=== PATIENT | female | born 1975 | race Caucasian/White ===

== ENCOUNTER 2021-07-26 14:17 | Emergency (ER) | payer OTHER ==
[~2021-07-26] VITALS: Ht 172.7 cm; Wt 70.4 kg
[2021-07-26] MEDS ORDERED: IV NORMAL SALINE 1000ML BAG 1,000 ML IV SCH (15:00)
[2021-07-26] MEDS ORDERED: ASPIRIN CHEWABLE 81 MG TABLET. PO ONE (15:00)
[2021-07-26 15:11] LABS: BASO % 1 % (0-3); EOS # 0.1 x10^3/uL (0.0-0.7); EOS % 1 % (0-3); HEMATOCRIT 39.2 % (36.0-47.0); HEMOGLOBIN 13.8 g/dL (12.0-15.5); LYMPH # 1.7 x10^3/uL (1.0-4.8); LYMPH % 19 % (24-48); MEAN CORPUSCULAR HEMOGLOBIN 30 pg (25-35); MEAN CORPUSCULAR HGB CONC 35 g/dL (31-37); MEAN CORPUSCULAR VOLUME 87 fL (79-100); MONO # 0.6 x10^3/uL (0.0-1.1); MONO % 7 % (0-9); NEUT # 6.4 x10^3/uL (1.8-7.7); NEUT % 73 % (31-73); PLATELET COUNT 224 x10^3/uL (140-400); RED BLOOD COUNT 4.52 x10^6/uL (3.50-5.40); RED CELL DISTRIBUTION WIDTH 13.6 % (11.5-14.5); WHITE BLOOD COUNT 8.8 x10^3/uL (4.0-11.0)
[2021-07-26 15:26] LABS: ALBUMIN 4.2 g/dL (3.4-5.0); ALBUMIN/GLOBULIN RATIO 0.9 (1.0-1.7); CALCIUM 9.5 mg/dL (8.5-10.1); CREATININE 1.2 mg/dL (0.6-1.0); GFR 48.8; MAGNESIUM 1.8 mg/dL (1.8-2.4); TOTAL BILIRUBIN 0.5 mg/dL (0.2-1.0); TOTAL PROTEIN 8.9 g/dL (6.4-8.2)
[2021-07-26] MEDS ORDERED: ONDANSETRON PF 4 MG/2 ML VIAL. IVP ONE (15:30)
[2021-07-26] MEDS ORDERED: FAMOTIDINE 20 MG/2 ML VIAL IVP ONE (15:30)
[2021-07-26 15:32] LABS: POTASSIUM 2.7 mmol/L (3.5-5.1)
--- NOTE | 2021-07-26 15:41 | RAD ---
AP chest. HISTORY: Chest pain AP view was taken of the chest. Lungs are clear. Heart is normal in size. There is no effusion. IMPRESSION: 1. No acute chest disease. Electronically signed by: Yogi Ramirez MD (07/26/2021 3:38 PM) [facility]
[2021-07-26] MEDS ORDERED: fentaNYL PF VIAL 100 MCG/2 ML VIAL IVP ONE (15:45)
--- NOTE | 2021-07-26 15:57 | PHYS DOC ---
Past Medical History Past Surgical History: Cholecystectomy, Additional Past Surgical Histo: ACL (YASMIN SIDDIQI APRN) General Adult EDM: Chief Complaint: CHEST PAIN HPI: HPI: Patient is a 46 year old female who presents with 2 weeks of right upper quadrant pain now going to the left chest that is a burning sensation, nausea and vomiting, tingling in the left hand. She states she is unable to keep any food or fluids down. She is a history of cholecystectomy. Rates her discomfort an 8 out of 10 at this time. (YASMIN SIDDIQI APRN) Review of Systems: Review of Systems: Constitutional: Denies fever or chills. [] Eyes: Denies change in visual acuity. [] HENT: Denies nasal congestion or sore throat. [] Respiratory: Denies cough or shortness of breath. [] Cardiovascular: +chest pain or denies edema. [] GI: + abdominal pain,+ nausea, +vomiting, bloody stools or diarrhea. [] : Denies dysuria. [] Musculoskeletal: Denies back pain or joint pain. [] Integument: Denies rash. [] Neurologic: Denies headache, focal weakness or sensory changes. [] Endocrine: Denies polyuria or polydipsia. [] Lymphatic: Denies swollen glands. [] Psychiatric: Denies depression or anxiety. [] (YASMIN SIDDIQI APRN) Heart Score: C/O Chest Pain: Yes HEART Score for Chest Pain: HEART Score for Chest Pain Response (Comments) Value History Slighlty/Non-Suspicious 0 ECG Normal 0 Age < 45 0 Risk Factors 1 or 2 Risk Factors 1 Troponin < Normal Limit 0 Total 1 Risk Factors: Risk Factors: DM, Current or recent (<one month) smoker, HTN, HLP, family history of CAD, obesity. Risk Scores: Score 0 - 3: 2.5% MACE over next 6 weeks - Discharge Home Score 4 - 6: 20.3% MACE over next 6 weeks - Admit for Clinical Observation Score 7 - 10: 72.7% MACE over next 6 weeks - Early Invasive Strategies (YASMIN SIDDIQI APRN) Current Medications: Current Medications Medications (Trade) Dose Ordered Sig/Chelsea Start Time Stop Time Status Last Admin Dose Admin Aspirin (Aspirin Chewable) 324 mg 1X ONCE 07/26/21 15:00 07/26/21 15:01 DC 07/26/21 15:41 324 MG Famotidine (Pepcid Vial) 20 mg 1X ONCE 07/26/21 15:30 07/26/21 15:34 DC 07/26/21 15:42 20 MG Fentanyl Citrate (Fentanyl 2ml Vial) 50 mcg 1X ONCE 07/26/21 15:45 07/26/21 15:46 DC 07/26/21 15:42 50 MCG Ondansetron HCl (Zofran) 4 mg 1X ONCE 07/26/21 15:30 07/26/21 15:34 DC 07/26/21 15:42 4 MG Sodium Chloride 1,000 ml @ 1,000 mls/hr Q1H 07/26/21 15:00 07/26/21 15:59 07/26/21 15:41 1,000 MLS/HR (YASMIN SIDDIQI APRN) Allergies: Allergies: Allergies Coded Allergies Type Severity Reaction Last Updated Verified Sulfa (Sulfonamide Antibiotics) Allergy Severe HIVES 07/26/21 Yes diphenhydramine Allergy Severe RASH 07/26/21 Yes (YASMIN SIDDIQI APRN) Physical Exam: PE: Constitutional: Well developed, well nourished, no acute distress, non-toxic appearance. [] HENT: Normocephalic, atraumatic, bilateral external ears normal, oropharynx moist, no oral exudates, nose normal. [] Eyes: PERRLA, EOMI, conjunctiva normal, no discharge. [] Neck: Normal range of motion, no tenderness, supple, no stridor. [] Cardiovascular:Heart rate regular rhythm, no murmur [] Lungs & Thorax: Bilateral breath sounds clear to auscultation [] Abdomen: Bowel sounds normal, soft, right upper quadrant tenderness, no masses, no pulsatile masses. [] Skin: Warm, dry, no erythema, no rash. [] Back: No tenderness, no CVA tenderness. [] Extremities: No tenderness, no cyanosis, no clubbing, ROM intact, no edema. [] Neurologic: Alert and oriented X 3, normal motor function, normal sensory function, no focal deficits noted. [] Psychologic: Affect normal, judgement normal, mood normal. 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 M SLASHER OPERATOR) Current Patient Data: Labs: Laboratory Tests Test 07/26/21 15:05 White Blood Count 8.8 x10^3/uL (4.0-11.0) Red Blood Count 4.52 x10^6/uL (3.50-5.40) Hemoglobin 13.8 g/dL (12.0-15.5) Hematocrit 39.2 % (36.0-47.0) Mean Corpuscular Volume 87 fL (79-100) Mean Corpuscular Hemoglobin 30 pg (25-35) Mean Corpuscular Hemoglobin Concent 35 g/dL (31-37) Red Cell Distribution Width 13.6 % (11.5-14.5) Platelet Count 224 x10^3/uL (140-400) Neutrophils (%) (Auto) 73 % (31-73) Lymphocytes (%) (Auto) 19 % (24-48) L Monocytes (%) (Auto) 7 % (0-9) Eosinophils (%) (Auto) 1 % (0-3) Basophils (%) (Auto) 1 % (0-3) Neutrophils # (Auto) 6.4 x10^3/uL (1.8-7.7) Lymphocytes # (Auto) 1.7 x10^3/uL (1.0-4.8) Monocytes # (Auto) 0.6 x10^3/uL (0.0-1.1) Eosinophils # (Auto) 0.1 x10^3/uL (0.0-0.7) Basophils # (Auto) 0.0 x10^3/uL (0.0-0.2) Sodium Level 138 mmol/L (136-145) Potassium Level 2.7 mmol/L (3.5-5.1) *L Chloride Level 97 mmol/L (98-107) L Carbon Dioxide Level 29 mmol/L (21-32) Anion Gap 12 (6-14) Blood Urea Nitrogen 19 mg/dL (7-20) Creatinine 1.2 mg/dL (0.6-1.0) H Estimated GFR (Cockcroft-Gault) 48.8 BUN/Creatinine Ratio 16 (6-20) Glucose Level 214 mg/dL (70-99) H Calcium Level 9.5 mg/dL (8.5-10.1) Magnesium Level 1.8 mg/dL (1.8-2.4) Total Bilirubin 0.5 mg/dL (0.2-1.0) Aspartate Amino Transferase (AST) 10 U/L (15-37) L Alanine Aminotransferase (ALT) 15 U/L (14-59) Alkaline Phosphatase 55 U/L (46-116) Troponin I Quantitative < 0.017 ng/mL (0.000-0.055) YZ-Yji-K-Type Natriuretic Peptide 350 pg/mL (0-124) H Total Protein 8.9 g/dL (6.4-8.2) H Albumin 4.2 g/dL (3.4-5.0) Albumin/Globulin Ratio 0.9 (1.0-1.7) L Lipase 342 U/L (73-393) Laboratory Tests 07/26/21 15:05 Laboratory Tests 07/26/21 15:05 Vital Signs: Vital Signs Date Time Temp Pulse Resp B/P (MAP) Pulse Ox O2 Delivery O2 Flow Rate FiO2 07/26/21 15:42 16 Room Air 07/26/21 14:37 99.0 95 185/102 (129) 100 99.0 (YASMIN SIDDIQI APRN) EKG: EK and read by Dr. Lazo as sinus rhythm and prolonged QT. No STEMI. (YASMIN SIDDIQI APRN) Radiology/Procedures: Radiology/Procedures: [] Impression: [facility] [address] [place] [address] IMAGING REPORT Signed PATIENT: TARA CARVALHO ACCOUNT: [id number] : 1975 LOCATION: ER AGE: 46 SEX: F EXAM STATUS: PRE ER ORD. PHYSICIAN: YASMIN SIDDIQI APRN REASON: chest pain PROCEDURE: PORTABLE CHEST 1V AP chest. HISTORY: Chest pain AP view was taken of the chest. Lungs are clear. Heart is normal in size. There is no effusion. IMPRESSION: 1. No acute chest disease. Electronically signed by: Yogi Ramirez MD (07/26/2021 3:38 PM) [facility] DICTATED and SIGNED BY: YOGI RAMIREZ MD DATE: 07/26/21 [id number] [facility] [address] [place] [address] IMAGING REPORT Signed PATIENT: TARA CARVALHO ACCOUNT: [id number] : 1975 LOCATION: ER AGE: 46 SEX: F EXAM STATUS: PRE ER ORD. PHYSICIAN: YASMIN SIDDIQI APRN REASON: ruq pain PROCEDURE: CT ABD PELV W/ IV CONTRST ONLY CT abdomen pelvis with contrast. HISTORY: Right upper quadrant pain, CT abdomen pelvis was done using 6 60 mL Omnipaque 300 contrast. Lung bases are clear. There is no effusion. Liver is normal in appearance. There is no calcified gallstone. Spleen and adrenal glands are unremarkable. Pancreas is normal in appearance. There is no mass or hydronephrosis in the kidneys. There is no renal or ureteral calculus evident. There is no free air or ascites. There is no bowel obstruction. Appendix is normal. Uterus and ovaries are unremarkable. Patient had a previous cholecystectomy. Bile ducts do not appear dilated. IMPRESSION: 1. Normal appendix. 2. No renal or ureteral calculus noted. 3. No bowel obstruction. 4. No abdominal or pelvic mass or other acute finding. PQRS Compliance Statement: One or more of the following individualized dose reduction techniques were utilized for this examination: 1. Automated exposure control 2. Adjustment of the mA and/or kV according to patient size 3. Use of iterative reconstruction technique Electronically signed by: Yogi Ramirez MD (07/26/2021 5:26 PM) [facility] DICTATED and SIGNED BY: YOGI RAMIREZ MD DATE: 07/26/21 [id number] (YASMIN SIDDIQI APRN) Course & Med Decision Making: Course & Med Decision Making Pertinent Labs and Imaging studies reviewed. (See chart for details) See HPI. Alert and oriented x4. Ambulatory steady gait. Skin pink warm dry. Urinalysis shows dehydration. Patient's creatinine is 1.2. Potassium is low at 2.7. I gave her potassium p.o. and IV. She became very nauseated and almost vomited potassium back up. Patient is given another dose of Compazine. Her blood pressure is also very high in the 240. She states she does have a history of high blood pressure but is not taking medication for. I ordered hydralazine. She has gotten 2 bags of normal saline IV. 182: Patient has decided that she cannot stay due to having a 16-year-old autistic child at home. He states that her now cannot call in and she must go home because nobody else can take care for the child. She states she understands that she is needing fluids and observation. She states she understands the risk of going home such as dying and disability. She states she understands potassium is too low and this can cause arrhythmias. Patient states that she has time to stay to get the rest of her fluids and to finish her potassium. Patient is signing out AGAINST MEDICAL ADVICE. [] (YASMIN SIDDIQI APRN) Dragon Disclaimer: Dragon Disclaimer: This electronic medical record was generated, in whole or in part, using a voice recognition dictation system. (YASMIN SIDDIQI APRN) Departure Departure Impression: Primary Impression: Hypokalemia Additional Impressions: Dehydration Abdominal pain Qualified Codes: R10.13 - Epigastric pain Nausea and vomiting Qualified Codes: R11.2 - Nausea with vomiting, unspecified Left against medical advice Disposition: LEFT AGAINST MEDICAL ADVICE Condition: STABLE Attending Signature Attending Signature I have reviewed the PA/HUMAN CAPITAL MANAGER's note and plan of care. I was available for consultation as needed during the patient's visit in the emergency department. I agree with the clinical impression, plan, and disposition. (JESSICA LAZO DO) YASMIN SIDDIQI APRN Jul 26, 2021 15:57 JESSICA LAZO DO Jul 27, 2021 06:53
[2021-07-26] MEDS ORDERED: POTASSIUM CHLORIDE 20 MEQ TABLET.ER. PO ONE (16:00)
[2021-07-26] MEDS: POTASSIUM CHLORIDE 20MEQ 100 ML IV SCH ×2 (16:08→17:29)
[2021-07-26 16:34] LABS: BILIRUBIN,URINE LARGE (NEG); CLARITY,URINE CLEAR; NITRITE,URINE NEGATIVE (NEG); PROTEIN,URINE 100 mg/dL (NEG-TRACE)
[2021-07-26 16:40] LABS: AMPHETAMINE/METHAMPHETAMINE NEG (NEG); BARBITURATES NEG (NEG); BENZODIAZEPINES NEG (NEG); CANNABINOIDS NEG (NEG); COCAINE NEG (NEG); METHADONE NEG (NEG); OPIATES POS (NEG); PHENCYCLIDINE NEG (NEG)
[2021-07-26 16:42] LABS: COLOR,URINE DK YELLOW
[2021-07-26 16:44] LABS: BACTERIA,URINE FEW /HPF (0-FEW); RBC,URINE RARE /HPF (0-2); WBC,URINE OCC /HPF (0-4)
[2021-07-26] MEDS ORDERED: CONTRAST GIVEN. MC PRN (16:45)
[2021-07-26] MEDS ORDERED: IOHEXOL 300 MG/ML 100ML VIAL. IV ONE (16:45)
--- NOTE | 2021-07-26 17:28 | EKG ---
[facility] [address] [place] [address] Test Date: 2021-07-26 Test Time: 14:36:01 Pat Name: TARA CARVALHO Department: Room: Gender: F Admissions Rn: : 1975 Requested By: YASMIN SIDDIQI Order Number: [id number] Reading MD: Yuriy Orellana MD Measurements Intervals [place] Rate: 94 P: 52 [place]: 122 QRS: 34 QRSD: 98 T: 47 QT: 384 QTc: 486 Interpretive Statements SINUS RHYTHM PROLONGED QT Electronically Signed On 07-29-2021 10:40:26 CDT by Yuriy Orellana MD
--- NOTE | 2021-07-26 17:28 | RAD ---
CT abdomen pelvis with contrast. HISTORY: Right upper quadrant pain, CT abdomen pelvis was done using 6 60 mL Omnipaque 300 contrast. Lung bases are clear. There is no ef fusion. Liver is normal in appearance. There is no calcified gallstone. Spleen and adrenal glands are unremarkable. Pancreas is normal in appearance. There is no mass or hydronephrosis in the kidneys. T here is no renal or ureteral calculus evident. There is no free air or ascites. There is no bowel obs truction. Appendix is normal. Uterus and ovaries are unremarkable. Patient had a previous cholecystec roseann. Bile ducts do not appear dilated. IMPRESSION: 1. Normal appendix. 2. No renal or ureteral calculus noted. 3. No bowel obstruction. 4. No abdominal or pelvic mass or other acute finding. PQRS Compliance Statement: One or more of the following individualized dose reduction techniques were utilized for this examinat ion: 1. Automated exposure control 2. Adjustment of the mA and/or kV according to patient size 3. Use of iterative reconstruction technique Electronically signed by: Yogi Ramirez MD (07/26/2021 5:26 PM) [facility]
[2021-07-26] MEDS ORDERED: IV NORMAL SALINE 1000ML BAG 1,000 ML IV ONE (18:00)
[2021-07-26] MEDS ORDERED: PROCHLORPERAZINE 10 MG/2 ML VIAL. IV ONE (18:00)
[2021-07-26] MEDS ORDERED: hydrALAZINE 20 MG/ML VIAL. IVP ONE (18:00)
--- NOTE | 2021-07-26 18:25 | PDOC1 ---
History and Physical Date of Admission Date of Admission DATE: 07/26/21 TIME: 18:25 Current Problem List Problem List Problems Medical Problems: (1) Abdominal pain Status: Acute (2) Dehydration Status: Acute (3) Hypokalemia Status: Acute (4) Nausea and vomiting Status: Acute Current Medications Current Medications Current Medications Aspirin (Aspirin Chewable) 324 mg 1X ONCE PO Last administered on 07/26/21at 15:41; Start 07/26/21 at 15:00; Stop 07/26/21 at 15:01; Status DC Sodium Chloride 1,000 ml @ 1,000 mls/hr Q1H IV Last administered on 07/26/21at 15:41; Start 07/26/21 at 15:00; Stop 07/26/21 at 15:59; Status DC Ondansetron HCl (Zofran) 4 mg 1X ONCE IVP Last administered on 07/26/21at 15:42; Start 07/26/21 at 15:30; Stop 07/26/21 at 15:34; Status DC Famotidine (Pepcid Vial) 20 mg 1X ONCE IVP Last administered on 07/26/21at 15:42; Start 07/26/21 at 15:30; Stop 07/26/21 at 15:34; Status DC Fentanyl Citrate (Fentanyl 2ml Vial) 50 mcg 1X ONCE IVP Last administered on 07/26/21at 15:42; Start 07/26/21 at 15:45; Stop 07/26/21 at 15:46; Status DC Potassium Chloride/Water 100 ml @ 50 mls/hr Q2H IV Last administered on 07/26/21at 17:29; Start 07/26/21 at 16:00; Stop 07/26/21 at 19:59 Potassium Chloride (Klor-Con) 20 meq 1X ONCE PO Last administered on 07/26/21at 16:14; Start 07/26/21 at 16:00; Stop 07/26/21 at 16:01; Status DC Iohexol (Omnipaque 300 Mg/ml) 75 ml 1X ONCE IV ; Start 07/26/21 at 16:45; Stop 07/26/21 at 16:46; Status DC Info (CONTRAST GIVEN -- Rx MONITORING) 1 each PRN DAILY PRN MC SEE COMMENTS; Start 07/26/21 at 16:45; Stop 07/28/21 at 16:44 Prochlorperazine Edisylate (Compazine) 10 mg 1X ONCE IV Last administered on 07/26/21at 18:07; Start 07/26/21 at 18:00; Stop 07/26/21 at 18:01; Status DC Hydralazine HCl (Apresoline Inj) 10 mg 1X ONCE IVP Last administered on 07/26/21at 18:07; Start 07/26/21 at 18:00; Stop 07/26/21 at 18:01; Status DC Sodium Chloride 1,000 ml @ 1,000 mls/hr 1X ONCE IV Last administered on 07/26/21at 18:00; Start 07/26/21 at 18:00; Stop 07/26/21 at 18:59 Magnesium Sulfate/ Dextrose 100 ml @ 100 mls/hr 1X ONCE IV ; Start 07/26/21 at 18:30; Stop 07/26/21 at 19:29; Status UNV Nitroglycerin (Nitrostat) 0.4 mg PRN Q5MIN PRN SL CHEST PAIN; Start 07/26/21 at 18:30; Status UNV Acetaminophen (Tylenol) 650 mg PRN Q6HRS PRN PO MILD PAIN / TEMP > 100.3'F; Start 07/26/21 at 18:30; Status UNV Ondansetron HCl (Zofran) 4 mg PRN Q4HRS PRN IVP NAUSEA/VOMITING; Start 07/26/21 at 18:30; Status UNV Hydralazine HCl (Apresoline Inj) 10 mg PRN Q4HRS PRN IVP ELEVATED BP, SEE COMMENTS; Start 07/26/21 at 18:30; Status UNV Fentanyl Citrate (Fentanyl 2ml Vial) 25 mcg PRN Q3HRS PRN IVP SEVERE PAIN 7-10; Start 07/26/21 at 18:30; Status UNV Allergies Allergies: Coded Allergies: Sulfa (Sulfonamide Antibiotics) (Verified Allergy, Severe, HIVES, 07/26/21) diphenhydramine (Verified Allergy, Severe, RASH, 07/26/21) Vitals Vitals Vital Signs Date Time Temp Pulse Resp B/P (MAP) Pulse Ox O2 Delivery O2 Flow Rate FiO2 07/26/21 18:07 94 234/119 07/26/21 15:42 16 Room Air 10/15/21 14:37 99.0 100 99.0 Labs Labs Laboratory Tests Test 07/26/21 15:05 07/26/21 16:20 07/26/21 16:25 White Blood Count 8.8 x10^3/uL (4.0-11.0) Red Blood Count 4.52 x10^6/uL (3.50-5.40) Hemoglobin 13.8 g/dL (12.0-15.5) Hematocrit 39.2 % (36.0-47.0) Mean Corpuscular Volume 87 fL (79-100) Mean Corpuscular Hemoglobin 30 pg (25-35) Mean Corpuscular Hemoglobin Concent 35 g/dL (31-37) Red Cell Distribution Width 13.6 % (11.5-14.5) Platelet Count 224 x10^3/uL (140-400) Neutrophils (%) (Auto) 73 % (31-73) Lymphocytes (%) (Auto) 19 % (24-48) Monocytes (%) (Auto) 7 % (0-9) Eosinophils (%) (Auto) 1 % (0-3) Basophils (%) (Auto) 1 % (0-3) Neutrophils # (Auto) 6.4 x10^3/uL (1.8-7.7) Lymphocytes # (Auto) 1.7 x10^3/uL (1.0-4.8) Monocytes # (Auto) 0.6 x10^3/uL (0.0-1.1) Eosinophils # (Auto) 0.1 x10^3/uL (0.0-0.7) Basophils # (Auto) 0.0 x10^3/uL (0.0-0.2) Sodium Level 138 mmol/L (136-145) Potassium Level 2.7 mmol/L (3.5-5.1) Chloride Level 97 mmol/L (98-107) Carbon Dioxide Level 29 mmol/L (21-32) Anion Gap 12 (6-14) Blood Urea Nitrogen 19 mg/dL (7-20) Creatinine 1.2 mg/dL (0.6-1.0) Estimated GFR (Cockcroft-Gault) 48.8 BUN/Creatinine Ratio 16 (6-20) Glucose Level 214 mg/dL (70-99) Calcium Level 9.5 mg/dL (8.5-10.1) Magnesium Level 1.8 mg/dL (1.8-2.4) Total Bilirubin 0.5 mg/dL (0.2-1.0) Aspartate Amino Transf (AST/SGOT) 10 U/L (15-37) Alanine Aminotransferase (ALT/SGPT) 15 U/L (14-59) Alkaline Phosphatase 55 U/L (46-116) Creatine Kinase 21 U/L (26-192) Troponin I Quantitative < 0.017 ng/mL (0.000-0.055) IV-Tbd-O-Type Natriuretic Peptide 350 pg/mL (0-124) Total Protein 8.9 g/dL (6.4-8.2) Albumin 4.2 g/dL (3.4-5.0) Albumin/Globulin Ratio 0.9 (1.0-1.7) Lipase 342 U/L (73-393) Urine Collection Type Unknown Urine Color Dk yellow Urine Clarity Clear Urine pH 6.0 (<5.0-8.0) Urine Specific Howe >=1.030 (1.000-1.030) Urine Protein 100 mg/dL (NEG-TRACE) Urine Glucose (UA) 250 mg/dL (NEG) Urine Ketones (Stick) 40 mg/dL (NEG) Urine Blood Negative (NEG) Urine Nitrite Negative (NEG) Urine Bilirubin Large (NEG) Urine Urobilinogen Dipstick 1.0 mg/dL (0.2 mg/dL) Urine Leukocyte Esterase Negative (NEG) Urine RBC Rare /HPF (0-2) Urine WBC Occ /HPF (0-4) Urine Squamous Epithelial Cells Many /LPF Urine Bacteria Few /HPF (0-FEW) Urine Mucus Slight /LPF Urine Opiates Screen Pos (NEG) Urine Methadone Screen Neg (NEG) Urine Barbiturates Neg (NEG) Urine Phencyclidine Screen Neg (NEG) Urine Amphetamine/Methamphetamine Neg (NEG) Urine Benzodiazepines Screen Neg (NEG) Urine Cocaine Screen Neg (NEG) Urine Cannabinoids Screen Neg (NEG) Urine Ethyl Alcohol Neg (NEG) Bedside Urine HCG, Qualitative Hcg negative (Negative) Laboratory Tests Test 07/26/21 15:05 07/26/21 16:20 07/26/21 16:25 White Blood Count 8.8 x10^3/uL (4.0-11.0) Red Blood Count 4.52 x10^6/uL (3.50-5.40) Hemoglobin 13.8 g/dL (12.0-15.5) Hematocrit 39.2 % (36.0-47.0) Mean Corpuscular Volume 87 fL (79-100) Mean Corpuscular Hemoglobin 30 pg (25-35) Mean Corpuscular Hemoglobin Concent 35 g/dL (31-37) Red Cell Distribution Width 13.6 % (11.5-14.5) Platelet Count 224 x10^3/uL (140-400) Neutrophils (%) (Auto) 73 % (31-73) Lymphocytes (%) (Auto) 19 % (24-48) Monocytes (%) (Auto) 7 % (0-9) Eosinophils (%) (Auto) 1 % (0-3) Basophils (%) (Auto) 1 % (0-3) Neutrophils # (Auto) 6.4 x10^3/uL (1.8-7.7) Lymphocytes # (Auto) 1.7 x10^3/uL (1.0-4.8) Monocytes # (Auto) 0.6 x10^3/uL (0.0-1.1) Eosinophils # (Auto) 0.1 x10^3/uL (0.0-0.7) Basophils # (Auto) 0.0 x10^3/uL (0.0-0.2) Sodium Level 138 mmol/L (136-145) Potassium Level 2.7 mmol/L (3.5-5.1) Chloride Level 97 mmol/L (98-107) Carbon Dioxide Level 29 mmol/L (21-32) Anion Gap 12 (6-14) Blood Urea Nitrogen 19 mg/dL (7-20) Creatinine 1.2 mg/dL (0.6-1.0) Estimated GFR (Cockcroft-Gault) 48.8 BUN/Creatinine Ratio 16 (6-20) Glucose Level 214 mg/dL (70-99) Calcium Level 9.5 mg/dL (8.5-10.1) Magnesium Level 1.8 mg/dL (1.8-2.4) Total Bilirubin 0.5 mg/dL (0.2-1.0) Aspartate Amino Transf (AST/SGOT) 10 U/L (15-37) Alanine Aminotransferase (ALT/SGPT) 15 U/L (14-59) Alkaline Phosphatase 55 U/L (46-116) Creatine Kinase 21 U/L (26-192) Troponin I Quantitative < 0.017 ng/mL (0.000-0.055) XZ-Dfe-T-Type Natriuretic Peptide 350 pg/mL (0-124) Total Protein 8.9 g/dL (6.4-8.2) Albumin 4.2 g/dL (3.4-5.0) Albumin/Globulin Ratio 0.9 (1.0-1.7) Lipase 342 U/L (73-393) Urine Collection Type Unknown Urine Color Dk yellow Urine Clarity Clear Urine pH 6.0 (<5.0-8.0) Urine Specific Howe >=1.030 (1.000-1.030) Urine Protein 100 mg/dL (NEG-TRACE) Urine Glucose (UA) 250 mg/dL (NEG) Urine Ketones (Stick) 40 mg/dL (NEG) Urine Blood Negative (NEG) Urine Nitrite Negative (NEG) Urine Bilirubin Large (NEG) Urine Urobilinogen Dipstick 1.0 mg/dL (0.2 mg/dL) Urine Leukocyte Esterase Negative (NEG) Urine RBC Rare /HPF (0-2) Urine WBC Occ /HPF (0-4) Urine Squamous Epithelial Cells Many /LPF Urine Bacteria Few /HPF (0-FEW) Urine Mucus Slight /LPF Urine Opiates Screen Pos (NEG) Urine Methadone Screen Neg (NEG) Urine Barbiturates Neg (NEG) Urine Phencyclidine Screen Neg (NEG) Urine Amphetamine/Methamphetamine Neg (NEG) Urine Benzodiazepines Screen Neg (NEG) Urine Cocaine Screen Neg (NEG) Urine Cannabinoids Screen Neg (NEG) Urine Ethyl Alcohol Neg (NEG) Bedside Urine HCG, Qualitative Hcg negative (Negative) Justifications for Admission Other Justification MORRO MENENDEZ MD Jul 26, 2021 18:25
[2021-07-26] MEDS ORDERED: hydrALAZINE 20 MG/ML VIAL. IVP PRN (18:30)
[2021-07-26] MEDS ORDERED: NITROGLYCERIN SUBLINGUAL 0.4 MG BOTTLE OF 25. SL PRN (18:30)
[2021-07-26] MEDS ORDERED: ONDANSETRON PF 4 MG/2 ML VIAL. IVP PRN (18:30)
[2021-07-26] MEDS ORDERED: ACETAMINOPHEN 325 MG TABLET. PO PRN (18:30)
[2021-07-26] MEDS ORDERED: DEXTROSE 50% 25 GM / 50ML DISP.SYRIN. IV PRN (18:30)
[2021-07-26] MEDS ORDERED: MAGNESIUM SULFATE 1GM 100 ML IV ONE (18:30)
[2021-07-26] MEDS ORDERED: fentaNYL PF VIAL 100 MCG/2 ML VIAL IVP PRN (18:30)
[2021-07-26 19:30] VITALS: BP 180/89
[2021-07-27] MEDS ORDERED: INSULIN LISPRO 300 UNITS/3 ML VIAL. SQ SCH (08:00)
== END 2021-07-26 19:30 | disposition left against medical advice (07) ==
LOC: ER 14:17
DX: E87.6 Hypokalemia (principal); E86.0 Dehydration; R10.13 Epigastric pain; R11.2 Nausea with vomiting, unspecified; Z90.49 Acquired absence of other specified parts of digestive tract; Z98.890 Other specified postprocedural states; Z88.2 Allergy status to sulfonamides; Z88.8 Allergy status to other drugs, medicaments and biological substances
CPT/HCPCS: 36415; 71045; 74177; 80053; 80307; 81001; 81025; 82550; 83690; 83735; 83880; 84484; 85025; 93005; 96361; 96365; 96366; 96375; 99285; J0360; J0780; J2405; J3010; J3480; J3490; J7030

== ENCOUNTER → 2021-08-20 | Outpatient (CLI) | payer BC, OTHER ==
[2021-07-26 19:30] VITALS: BP 180/89
--- NOTE | 2021-08-20 15:28 | KCIC ---
Exam Date: 08/20/2021 1:12 PM MRI LEFT LOWER EXTREMITY JOINT WITHOUT Indication: Reason: LEFT HIP PAIN / Spl. Instructions: / History: Left hip and thigh pain for severa l weeks.. TECHNIQUE: Multiplanar MR images of the hip were performed without intravenous contrast. FINDINGS: The hip joint is normal. No labral tear is identified, though evaluation of the labrum is limited in the absence of intra-articular contrast. There is no evidence for femoral acetabular impingement. Bone marrow signal is within normal limits. No acute fracture visualized. No avascular necrosis or thomas int effusion. Iliopsoas, hamstring, and gluteal tendons are intact. The bony pelvis is intact. SI joints are grossly unremarkable. IMPRESSION: No acute abnormality. Electronically signed by: Tuan Mcqueen MD (08/20/2021 3:25 PM) [id number]
== END ==
LOC: KCIC MRI 13:04
PROVIDERS: ATTEND Orthopaedic Surgery
DX: M25.552 Pain in left hip (principal)
CPT/HCPCS: 73721

== ENCOUNTER → 2021-08-30 | Outpatient (CLI) | payer BC, OTHER ==
[~2021-08-30] MED LIST: BUPIVACAINE MPF 0.25% 10 ML VIAL. IJ ONE; IOHEXOL 300 MG/ML 50 ML VIAL. IJ ONE; LIDOCAINE 1% Multi-Dose 20 ML VIAL. INJ ONE; TRIAMCINOLONE ACETONIDE 40 MG/ML VIAL. INT ART ONE; methylPREDNISolone ACETATE 80 MG/ML VIAL. IM ONE
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
== END | disposition home or self-care (01) ==
LOC: RAD 08:32
PROVIDERS: ATTEND Orthopaedic Surgery
DX: M25.552 Pain in left hip (principal); Z88.2 Allergy status to sulfonamides; Z88.8 Allergy status to other drugs, medicaments and biological substances
CPT/HCPCS: 20610; 77002; J3301; J3490; Q9967

== ENCOUNTER 2021-11-25 17:46 | Inpatient (IN) | payer BC, OTHER ==
[~2021-11-25] VITALS: Ht 172.7 cm; Wt 65.8 kg
[2021-11-25] MEDS ORDERED: MORPHINE SULFATE 4 MG/ML INJ. IV/SQ PRN (18:15)
[2021-11-25] MEDS ORDERED: ONDANSETRON PF 4 MG/2 ML VIAL. IVP ONE (18:15)
[2021-11-25 18:41] LABS: BASO # 0.1 x10^3/uL (0.0-0.2); BASO % 1 % (0-3); EOS # 0.1 x10^3/uL (0.0-0.7); EOS % 1 % (0-3); HEMOGLOBIN 13.7 g/dL (12.0-15.5); LYMPH # 2.9 x10^3/uL (1.0-4.8); LYMPH % 27 % (24-48); MEAN CORPUSCULAR HEMOGLOBIN 28 pg (25-35); MEAN CORPUSCULAR HGB CONC 34 g/dL (31-37); MEAN CORPUSCULAR VOLUME 82 fL (79-100); MONO # 0.5 x10^3/uL (0.0-1.1); MONO % 5 % (0-9); NEUT # 7.2 x10^3/uL (1.8-7.7); NEUT % 67 % (31-73); PLATELET COUNT 291 x10^3/uL (140-400); RED BLOOD COUNT 4.91 x10^6/uL (3.50-5.40); WHITE BLOOD COUNT 10.8 x10^3/uL (4.0-11.0)
--- NOTE | 2021-11-25 18:58 | PHYS DOC ---
Past Medical History Past Medical History: Diabetes-Type II Past Surgical History: No Surgical History Additional Past Surgical Histo: ACL General Adult EDM: Chief Complaint: CHEST PAIN HPI: HPI: Patient is a 46 year old female with history of diabetes type 2, presenting today complaining of a sharp intermittent 8 out of 10 left-sided chest pain and "kidney pain", chest pain began today at 2 p.m, kidney pain began 1 week ago. Patient states she was seen at [facility] a month ago for similar complaints and her potassium was 2.3. She also states she has had intermittent nausea and vomiting since then. Patient states the pain in her chest radiates to her back. Review of Systems: Review of Systems: Constitutional: Denies fever or chills. [] Eyes: Denies change in visual acuity. [] HENT: Denies nasal congestion or sore throat. [] Respiratory: Denies cough or shortness of breath. [] Cardiovascular: Reports chest pain GI: Denies abdominal pain, nausea, vomiting, bloody stools or diarrhea. [] : Reports kidney pain. Denies dysuria. [] Musculoskeletal: Denies back pain or joint pain. [] Integument: Denies rash. [] Neurologic: Denies headache, focal weakness or sensory changes. [] ] Psychiatric: Denies depression or anxiety. [] Heart Score: C/O Chest Pain: N/A Risk Factors: Risk Factors: DM, Current or recent (<one month) smoker, HTN, HLP, family history of CAD, obesity. Risk Scores: Score 0 - 3: 2.5% MACE over next 6 weeks - Discharge Home Score 4 - 6: 20.3% MACE over next 6 weeks - Admit for Clinical Observation Score 7 - 10: 72.7% MACE over next 6 weeks - Early Invasive Strategies Current Medications: Current Medications Medications (Trade) Dose Ordered Sig/Chelsea Start Time Stop Time Status Last Admin Dose Admin Morphine Sulfate (Morphine Sulfate) 4 mg PRN Q15MIN PRN 11/25/21 18:15 11/26/21 18:14 11/25/21 18:43 4 MG Ondansetron HCl (Zofran) 4 mg 1X ONCE 11/25/21 18:15 11/25/21 18:16 DC 11/25/21 18:42 4 MG Allergies: Allergies: Allergies Coded Allergies Type Severity Reaction Last Updated Verified Sulfa (Sulfonamide Antibiotics) Allergy Severe HIVES 11/25/21 Yes diphenhydramine Allergy Severe RASH 07/26/21 Yes Physical Exam: PE: Constitutional: Well developed, well nourished, no acute distress, non-toxic appearance. [] HENT: Normocephalic, atraumatic, bilateral external ears normal, oropharynx moist, no oral exudates, nose normal. [] Eyes: PERRLA, EOMI, conjunctiva normal, no discharge. [] Neck: Normal range of motion, no tenderness, supple, no stridor. [] Cardiovascular:Heart rate regular rhythm, no murmur [] Lungs & Thorax: Bilateral breath sounds clear to auscultation [] Abdomen: Bowel sounds normal, soft, no tenderness, no masses, no pulsatile masses. [] Skin: Warm, dry, no erythema, no rash. [] Back: No tenderness, no CVA tenderness. [] Extremities: No tenderness, no cyanosis, no clubbing, ROM intact, no edema. [] Neurologic: Alert and oriented X 3, normal motor function, normal sensory function, no focal deficits noted. [] Psychologic: Affect normal, judgement normal, mood normal. [] Current Patient Data: Labs: Laboratory Tests Test 11/25/21 18:32 White Blood Count 10.8 x10^3/uL (4.0-11.0) Red Blood Count 4.91 x10^6/uL (3.50-5.40) Hemoglobin 13.7 g/dL (12.0-15.5) Hematocrit 40.0 % (36.0-47.0) Mean Corpuscular Volume 82 fL (79-100) Mean Corpuscular Hemoglobin 28 pg (25-35) Mean Corpuscular Hemoglobin Concent 34 g/dL (31-37) Red Cell Distribution Width 15.0 % (11.5-14.5) H Platelet Count 291 x10^3/uL (140-400) Neutrophils (%) (Auto) 67 % (31-73) Lymphocytes (%) (Auto) 27 % (24-48) Monocytes (%) (Auto) 5 % (0-9) Eosinophils (%) (Auto) 1 % (0-3) Basophils (%) (Auto) 1 % (0-3) Neutrophils # (Auto) 7.2 x10^3/uL (1.8-7.7) Lymphocytes # (Auto) 2.9 x10^3/uL (1.0-4.8) Monocytes # (Auto) 0.5 x10^3/uL (0.0-1.1) Eosinophils # (Auto) 0.1 x10^3/uL (0.0-0.7) Basophils # (Auto) 0.1 x10^3/uL (0.0-0.2) Laboratory Tests 11/25/21 18:32 Vital Signs: Vital Signs Date Time Temp Pulse Resp B/P (MAP) Pulse Ox O2 Delivery O2 Flow Rate FiO2 11/25/21 18:43 18 100 Room Air 11/25/21 17:58 98.6 99 147/74 (98) 98.6 EKG: EK interpreted by Dr. Diana sinus rhythm ST depressions V4, V5, heart rate 79 no STEMI Radiology/Procedures: Radiology/Procedures: []PROCEDURE: CT ABDOMEN PELVIS WO CONTRAST CT ABDOMEN+PELVIS WO History: Flank pain Comparison: CT abdomen pelvis 07/26/2021. Technique: Noncontrast CT of the abdomen and pelvis Findings: The lung bases are clear. The liver, pancreas, and adrenal glands are unremarkable. There is mild sple nomegaly measuring 12.5 cm AP. Status post cholecystectomy. No nephrolithiasis or hydronephrosis. No ureterolithiasis is identified. The bladder is unremarkable. Normal appearance of the uterus and adnexa. The stomach and small bowel are unremarkable. Normal appendix. Mild descending colonic diverticulosis. Mild sigmoid wall thickening. Well-formed stool at the sigmoid colon and rectum with hyperdensity, possibly related to previous contrast administration or medication. Peripherally calcified right pelvic wall nodule measures 1.4 x 1.1 cm, likely fat necrosis or surgical granuloma. No intra-abdominal free air or free fluid. No adenopathy. No acute osseous abnormality. L5-S1 degenerative disc disease. Impression: 1. Mild wall thickening at the sigmoid colon may represent colitis or diverticulitis. No significant pericolonic inflammatory changes, perforation or abscess. Findings may simply represent nondistended colon. 2. Mild splenomegaly measuring 12.5 cm AP. 3. No hydronephrosis nephrolithiasis. Normal appendix. ------ Exposure: One or more of the following individualized dose reduction techniques were utilized for this examination: 1. Automated exposure control 2. Adjustment of the mA and/or kV according to patient size 3. Use of iterative reconstruction technique. Electronically signed by: Kenneth Mcdaniel MD (11/25/2021 7:41 PM) [facility] DICTATED and SIGNED BY: KENNETH MCDANIEL MD DATE: 11/25/21 [id number] PROCEDURE: PORTABLE CHEST 1V INDICATION: Reason: chest pain / Spl. Instructions: / History: COMPARISON: July 26, 2021 FINDINGS: Single view of chest obtained. Cardiomediastinal silhouette is unremarkable. No definite focal airspace consolidation. IMPRESSION: * No definite focal airspace consolidation. Electronically signed by: Reyna Hester MD (11/25/2021 7:02 PM) [id number] DICTATED and SIGNED BY: REYNA HESTER MD DATE: 11/25/21 [id number] Course & Med Decision Making: Course & Med Decision Making This a 46-year-old female patient presenting to the ED today with left-sided chest pain that began at 2 PM today as well as kidney pain for 1 week and nausea and vomiting for one month Vitals on arrival to the ED temperature 98.6, heart rate 99, respiration 20 on room air, blood pressure 147/77, O2 sats 100% CBC with nothing really acute. CMP with potassium of 2.3. Given oral potassium replacement as well as IV potassium started. Magnesium 1.5, IV magnesium ordered. Glucose 269, anion gap is normal Spoke with Dr. Núñez who accepted patient for admission Rebecca Disclaimer: Rebecca Disclaimer: This electronic medical record was generated, in whole or in part, using a voice recognition dictation system. Departure Departure Impression: Primary Impression: Hypokalemia Additional Impressions: Nausea and vomiting Qualified Codes: R11.2 - Nausea with vomiting, unspecified Chest pain Qualified Codes: R07.9 - Chest pain, unspecified Hyperglycemia Hypomagnesemia Disposition: ADMITTED INPATIENT Condition: STABLE Referrals: CONSUELO COLUNGA MD (PCP) VALENTÍN ROUSE APRN Nov 25, 2021 18:58
[2021-11-25 19:03] LABS: ALBUMIN 3.5 g/dL (3.4-5.0); ALBUMIN/GLOBULIN RATIO 0.8 (1.0-1.7); CALCIUM 9.1 mg/dL (8.5-10.1); CREATININE 1.3 mg/dL (0.6-1.0); GFR 44.5; MAGNESIUM 1.5 mg/dL (1.8-2.4); TOTAL BILIRUBIN 0.6 mg/dL (0.2-1.0)
--- NOTE | 2021-11-25 19:04 | RAD ---
INDICATION: Reason: chest pain / Spl. Instructions: / History: COMPARISON: July 26, 2021 FINDINGS: Single view of chest obtained. Cardiomediastinal silhouette is unremarkable. No definite focal airspace consolidation. IMPRESSION: * No definite focal airspace consolidation. Electronically signed by: Lauro Oconnor MD (11/25/2021 7:02 PM) [id number]
[2021-11-25 19:15] LABS: POTASSIUM 2.3 mmol/L (3.5-5.1)
[2021-11-25] MEDS ORDERED: POTASSIUM CHLORIDE 20 MEQ TABLET.ER. PO ONE (19:15)
--- NOTE | 2021-11-25 19:44 | RAD ---
CT ABDOMEN+PELVIS WO History: Flank pain Comparison: CT abdomen pelvis 07/26/2021. Technique: Noncontrast CT of the abdomen and pelvis Findings: The lung bases are clear. The liver, pancreas, and adrenal glands are unremarkable. There is mild splenomegaly measuring 12.5 c m AP. Status post cholecystectomy. No nephrolithiasis or hydronephrosis. No ureterolithiasis is identified. The bladder is unremarkable. Normal appearance of the uterus and adnexa. The stomach and small bowel are unremarkable. Normal appendix. Mild descending colonic diverticulosis . Mild sigmoid wall thickening. Well-formed stool at the sigmoid colon and rectum with hyperdensity, possibly related to previous contrast administration or medication. Peripherally calcified right pelvic wall nodule measures 1.4 x 1.1 cm, likely fat necrosis or surgica l granuloma. No intra-abdominal free air or free fluid. No adenopathy. No acute osseous abnormality. L5-S1 degenerative disc disease. Impression: 1. Mild wall thickening at the sigmoid colon may represent colitis or diverticulitis. No significant pericolonic inflammatory changes, perforation or abscess. Findings may simply represent nondistended colon. 2. Mild splenomegaly measuring 12.5 cm AP. 3. No hydronephrosis nephrolithiasis. Normal appendix. ------ Exposure: One or more of the following individualized dose reduction techniques were utilized for thi s examination: 1. Automated exposure control 2. Adjustment of the mA and/or kV according to patient size 3. Use of iterative reconstruction technique. Electronically signed by: Kenneth Olvera MD (11/25/2021 7:41 PM) [facility]
[2021-11-25] MEDS ORDERED: ONDANSETRON PF 4 MG/2 ML VIAL. IVP PRN (20:15)
[2021-11-25] MEDS ORDERED: METOCLOPRAMIDE HCL 10 MG/2 ML VIAL. IVP PRN (20:15)
[2021-11-25] MEDS ORDERED: NITROGLYCERIN SUBLINGUAL 0.4 MG BOTTLE OF 25. SL PRN (20:15)
[2021-11-25] MEDS ORDERED: POTASSIUM CHLORIDE 20MEQ 100 ML IV SCH (20:15)
[2021-11-25] MEDS ORDERED: MAGNESIUM SULFATE 2GM 50 ML IV ONE (20:15)
[2021-11-25] MEDS ORDERED: DEXTROSE 50% 25 GM / 50ML DISP.SYRIN. IV PRN ×2 (20:15→21:15)
[2021-11-25] MEDS ORDERED: IV DEXTROSE 5% 250 ML BAG. IV PRN ×2 (20:15→21:15)
[2021-11-25] MEDS ORDERED: ACETAMINOPHEN 325 MG TABLET. PO PRN (20:15)
[2021-11-25] MEDS ORDERED: IV NORMAL SALINE 1000ML BAG 1,000 ML IV ONE (20:15)
--- NOTE | 2021-11-25 21:36 | PDOC1 ---
History and Physical Date of Admission Date of Admission DATE: 11/25/21 TIME: 21:16 Identification/Chief Complaint Chief Complaint Chest pain, nausea and vomiting Source Source: Patient History of Present Illness History of Present Illness Ms Gomez is a 46 yo female w/ PMHx DM2 who comes to the ED 11/25/21 c/o sharp 8 out of 10 left-sided chest pain and right flank pain. She and her , bedside, note her chest pain began today and she has associated weakness. She also notes nausea and vomiting. She has had intermittent colicky abdominal pain that is epigastric and left upper quadrant and right flank pain she refers to as "kidney pain". She notes this has been going on since 10/04/2021. She has been admitted to [facility] twice in the past 2 m onths for nausea and vomiting with hypokalemia. She notes in September she thinks she had an EGD and had dilatation and felt relief until 3 weeks ago her vomiting began again and she was readmitted to the hospital. Zofran helps with nausea, IV morphine relieves her pain. She is a non-smoker nondrinker. Notes she does not use any illicit drugs. Has had diabetes for 6 years and was initially on Metformin but has since been transitioned to glargine and aspart insulin throughout the day. She has not been checking her blood sugar for the last week she thinks it has not been high because she is not eating. WBC 10.8, Hb 13.7, platelets 291, NA 134, K2.3, BUN 17, CR 1.3, glucose 269, magnesium 1.5, calcium 9.1, bilirubin 0.6, AST 5, ALT 12, alkaline phosphatase 6 1, high-sensitivity troponin XVI, NT proBNP is 235, albumin 3.5. Chest radiograph with no acute abnormality. CT abdomen pelvis with sigmoid colon thickening and splenomegaly 12.5 cm no hydronephrosis or nephrolithiasis normal-appearing appendix. Admitted for further care. Past Medical History Cardiovascular: HTN Endocrine: Diabetes Past Surgical History Past Surgical History: , Other (Left ACL repair) Family History Family History: Diabetes, High Cholestrol, Hypertension Social History Smoke: No ALCOHOL: none Drugs: None Current Problem List Problem List Problems Medical Problems: (1) Chest pain Status: Acute (2) Hyperglycemia Status: Acute (3) Hypokalemia Status: Acute (4) Hypomagnesemia Status: Acute (5) Nausea and vomiting Status: Acute Current Medications Current Medications Current Medications Morphine Sulfate (Morphine Sulfate) 4 mg PRN Q15MIN PRN IV/SQ PAIN GREATER THAN 3/10 Last administered on 11/25/21at 18:43; Start 11/25/21 at 18:15; Stop 11/26/21 at 18:14 Ondansetron HCl (Zofran) 4 mg 1X ONCE IVP Last administered on 11/25/21at 18:42; Start 11/25/21 at 18:15; Stop 11/25/21 at 18:16; Status DC Potassium Chloride (Klor-Con) 40 meq 1X ONCE PO Last administered on 11/25/21at 19:26; Start 11/25/21 at 19:15; Stop 11/25/21 at 19:17; Status DC Ondansetron HCl (Zofran) 4 mg PRN Q8HRS PRN IVP NAUSEA/VOMITING; Start 11/25/21 at 20:15; Stop 11/26/21 at 20:14 Morphine Sulfate (Morphine Sulfate) 4 mg PRN Q2HR PRN IVP PAIN; Start 11/25/21 at 20:15; Stop 11/26/21 at 20:14 Acetaminophen (Tylenol) 650 mg PRN Q4HRS PRN PO FEVER > 100.3'F; Start 11/25/21 at 20:15; Stop 11/26/21 at 20:14 Nitroglycerin (Nitrostat) 0.4 mg PRN Q5MIN PRN SL CHEST PAIN; Start 11/25/21 at 20:15; Stop 11/26/21 at 20:14 Magnesium Sulfate 50 ml @ 25 mls/hr 1X ONCE IV Last administered on 11/25/21at 20:41; Start 11/25/21 at 20:15; Stop 11/25/21 at 22:14 Potassium Chloride/Water 100 ml @ 100 mls/hr Q1H IV ; Start 11/25/21 at 20:15; Stop 11/25/21 at 22:14; Status UNV Metoclopramide HCl (Reglan Vial) 10 mg TID PRN IVP NAUSEA; Start 11/25/21 at 20:15 Sodium Chloride 1,000 ml @ 75 mls/hr 1X ONCE IV Last administered on 11/25/21at 20:36; Start 11/25/21 at 20:15; Stop 11/26/21 at 09:34 Dextrose (Dextrose 50%-Water Syringe) 12.5 gm PRN Q15MIN PRN IV SEE COMMENTS; Start 11/25/21 at 20:15 Dextrose (Iv Dextrose 5%) 250 ml PRN Q15MIN PRN IV SEE COMMENTS; Start 11/25/21 at 20:15 Potassium Chloride/Water 100 ml @ 100 mls/hr Q1H IV ; Start 11/25/21 at 20:30; Stop 11/26/21 at 00:29 Allergies Allergies: Coded Allergies: Sulfa (Sulfonamide Antibiotics) (Verified Allergy, Severe, HIVES, 11/25/21) diphenhydramine (Verified Allergy, Severe, RASH, 07/26/21) ROS General: YES: Fatigue, Malaise, Appetite; No: Chills, Night Sweats, Other PSYCHOLOGICAL ROS: YES: Anxiety; No: Behavioral Disorder, Concentration difficultie, Decreased libido, Depression, Disorientation, Hallucinations, Hostility, Irritablity, Memory difficulties, Mood Swings, Obsessive thoughts, Physical abuse, Sexual abuse, Sleep disturbances, Suicidal ideation, Other Eyes: No Blurry vision, No Decreased vision, No Double vision, No Dry eyes, No Excessive tearing, No Eye Pain, No Itchy Eyes, No Loss of vision, No Photophobia, No Scotomata, No Uses contacts, No Uses glasses, No Other HEENT: No: Heacaches, Visual Changes, Hearing change, Nasal congestion, Nasal discharge, Oral lesions, Sinus pain, Sore Throat, Epistaxis, Sneezing, Snoring, Tinnitus, Vertigo, Vocal changes, Other ALLERGY AND IMMUNOLOGY: No: Hives, Insect Bite Sensitivity, Itchy/Watery Eyes, Nasal Congestion, Post Nasal Drip, Seasonal Allergies, Other Hematological and Lymphatic: No: Bleeding Problems, Blood Clots, Blood Transfusions, Brusing, Night Sweats, Pallor, Swollen Lymph Nodes, Other ENDOCRINE: No: Breast Changes, Galactorrhea, Hair Pattern Changes, Hot Flashes, Malaise/lethargy, Mood Swings, Palpitations, Polydipsia/polyuria, Skin Changes, Temperature Intolerance, Unexpected Weight Changes, Other Breast: No New/Changing Breast Lumps, No Nipple changes, No Nipple discharge, No Other Respiratory: No: Cough, Hemoptysis, Orthopnea, Pleuritic Pain, Shortness of breath, SOB with excertion, Sputum Changes, Stridor, Tachypnea, Wheezing, Other Cardiovascular: yes Chest Pain; No Palpitations, No Orthopnea, No Paroxysmal Noc. Dyspnea, No Edema, No Lt Headedness, No Other Gastrointestinal: Yes Nausea, Yes Vomiting, Yes Abdominal Pain; No Diarrhea, No Constipation, No Melena, No Hematochezia, No Other Genitourinary: No Dysuria, No Frequency, No Incontinence, No Hematuria, No Retention, No Discharge, No Urgency, No Pain, No Flank Pain, No Other, No , No , No , No , No , No , No Musculoskeletal: Yes Muscular Weakness; No Gait Disturbance, No Joint Pain, No Joint Stiffness, No Joint Swelling, No Muscle Pain, No Pain In:, No Swelling In:, No Other Neurological: No Behavorial Changes, No Bowel/Bladder ControlChng, No Confusion, No Dizziness, No Gait Disturbance, No Headaches, No Impaired Coord/balance, No Memory Loss, No Numbness/Tingling, No Seizures, No Speech Problems, No Tremors, No Visual Changes, No Weakness, No Other Skin: No Dry Skin, No Eczema, No Hair Changes, No Lumps, No Mole Changes, No Mottling, No Nail Changes, No Pruritus, No Rash, No Skin Lesion Changes, No Other, No Acne Physical Exam General: Alert, Oriented X3, Cooperative, moderate distress HEENT: Atraumatic, PERRLA, EOMI, Mucous membr. moist/pink Lungs: Clear to auscultation, Normal air movement Heart: S1S2, RRR, no thrills, no gallops, no murmurs Abdomen: Normal bowel sounds, Soft, No hepatosplenomegaly, No masses, Other (epigastric tenderness) Rectal Exam: not examined Extremities: No clubbing, No cyanosis, No edema, Normal pulses, No tenderness/swelling Skin: No rashes, No breakdown, No significant lesion Neuro: Normal gait, Normal speech, Strength at 5/5 X4 ext, Normal tone, Sensation intact, Cranial nerves 3-12 NL, Reflexes 2+ Psych/Mental Status: Mental status NL, Mood NL Vitals Vitals Vital Signs Date Time Temp Pulse Resp B/P (MAP) Pulse Ox O2 Delivery O2 Flow Rate FiO2 2/14/22 20:23 87 26 121/86 (98) 100 Room Air 11/25/21 17:58 98.6 98.6 Labs Labs Laboratory Tests Test 11/25/21 18:32 White Blood Count 10.8 x10^3/uL (4.0-11.0) Red Blood Count 4.91 x10^6/uL (3.50-5.40) Hemoglobin 13.7 g/dL (12.0-15.5) Hematocrit 40.0 % (36.0-47.0) Mean Corpuscular Volume 82 fL (79-100) Mean Corpuscular Hemoglobin 28 pg (25-35) Mean Corpuscular Hemoglobin Concent 34 g/dL (31-37) Red Cell Distribution Width 15.0 % (11.5-14.5) Platelet Count 291 x10^3/uL (140-400) Neutrophils (%) (Auto) 67 % (31-73) Lymphocytes (%) (Auto) 27 % (24-48) Monocytes (%) (Auto) 5 % (0-9) Eosinophils (%) (Auto) 1 % (0-3) Basophils (%) (Auto) 1 % (0-3) Neutrophils # (Auto) 7.2 x10^3/uL (1.8-7.7) Lymphocytes # (Auto) 2.9 x10^3/uL (1.0-4.8) Monocytes # (Auto) 0.5 x10^3/uL (0.0-1.1) Eosinophils # (Auto) 0.1 x10^3/uL (0.0-0.7) Basophils # (Auto) 0.1 x10^3/uL (0.0-0.2) Sodium Level 134 mmol/L (136-145) Potassium Level 2.3 mmol/L (3.5-5.1) Chloride Level 93 mmol/L (98-107) Carbon Dioxide Level 30 mmol/L (21-32) Anion Gap 11 (6-14) Blood Urea Nitrogen 17 mg/dL (7-20) Creatinine 1.3 mg/dL (0.6-1.0) Estimated GFR (Cockcroft-Gault) 44.5 BUN/Creatinine Ratio 13 (6-20) Glucose Level 269 mg/dL (70-99) Calcium Level 9.1 mg/dL (8.5-10.1) Magnesium Level 1.5 mg/dL (1.8-2.4) Total Bilirubin 0.6 mg/dL (0.2-1.0) Aspartate Amino Transf (AST/SGOT) 5 U/L (15-37) Alanine Aminotransferase (ALT/SGPT) 12 U/L (14-59) Alkaline Phosphatase 61 U/L (46-116) Troponin I High Sensitivity 16 ng/L (4-50) QF-Bfy-M-Type Natriuretic Peptide 235 pg/mL (0-124) Total Protein 8.0 g/dL (6.4-8.2) Albumin 3.5 g/dL (3.4-5.0) Albumin/Globulin Ratio 0.8 (1.0-1.7) Laboratory Tests Test 11/25/21 18:32 White Blood Count 10.8 x10^3/uL (4.0-11.0) Red Blood Count 4.91 x10^6/uL (3.50-5.40) Hemoglobin 13.7 g/dL (12.0-15.5) Hematocrit 40.0 % (36.0-47.0) Mean Corpuscular Volume 82 fL (79-100) Mean Corpuscular Hemoglobin 28 pg (25-35) Mean Corpuscular Hemoglobin Concent 34 g/dL (31-37) Red Cell Distribution Width 15.0 % (11.5-14.5) Platelet Count 291 x10^3/uL (140-400) Neutrophils (%) (Auto) 67 % (31-73) Lymphocytes (%) (Auto) 27 % (24-48) Monocytes (%) (Auto) 5 % (0-9) Eosinophils (%) (Auto) 1 % (0-3) Basophils (%) (Auto) 1 % (0-3) Neutrophils # (Auto) 7.2 x10^3/uL (1.8-7.7) Lymphocytes # (Auto) 2.9 x10^3/uL (1.0-4.8) Monocytes # (Auto) 0.5 x10^3/uL (0.0-1.1) Eosinophils # (Auto) 0.1 x10^3/uL (0.0-0.7) Basophils # (Auto) 0.1 x10^3/uL (0.0-0.2) Sodium Level 134 mmol/L (136-145) Potassium Level 2.3 mmol/L (3.5-5.1) Chloride Level 93 mmol/L (98-107) Carbon Dioxide Level 30 mmol/L (21-32) Anion Gap 11 (6-14) Blood Urea Nitrogen 17 mg/dL (7-20) Creatinine 1.3 mg/dL (0.6-1.0) Estimated GFR (Cockcroft-Gault) 44.5 BUN/Creatinine Ratio 13 (6-20) Glucose Level 269 mg/dL (70-99) Calcium Level 9.1 mg/dL (8.5-10.1) Magnesium Level 1.5 mg/dL (1.8-2.4) Total Bilirubin 0.6 mg/dL (0.2-1.0) Aspartate Amino Transf (AST/SGOT) 5 U/L (15-37) Alanine Aminotransferase (ALT/SGPT) 12 U/L (14-59) Alkaline Phosphatase 61 U/L (46-116) Troponin I High Sensitivity 16 ng/L (4-50) UW-Aoo-A-Type Natriuretic Peptide 235 pg/mL (0-124) Total Protein 8.0 g/dL (6.4-8.2) Albumin 3.5 g/dL (3.4-5.0) Albumin/Globulin Ratio 0.8 (1.0-1.7) Images Images Chest radiograph: Single view of chest obtained. Cardiomediastinal silhouette is unremarkable. No definite focal airspace consolidation. IMPRESSION: * No definite focal airspace consolidation. CT abdomen/pelvis w/o contrast: The lung bases are clear. The liver, pancreas, and adrenal glands are unremarkable. There is mild splenomegaly measuring 12.5 cm AP. Status post cholecystectomy. No nephrolithiasis or hydronephrosis. No ureterolithiasis is identified. The bladder is unremarkable. Normal appearance of the uterus and adnexa. The stomach and small bowel are unremarkable. Normal appendix. Mild descending colonic diverticulosis. Mild sigmoid wall thickening. Well-formed stool at the sigmoid colon and rectum with hyperdensity, possibly related to previous contrast administration or medication. Peripherally calcified right pelvic wall nodule measures 1.4 x 1.1 cm, likely fat necrosis or surgical granuloma. No intra-abdominal free air or free fluid. No adenopathy. No acute osseous abnormality. L5-S1 degenerative disc disease. Impression: 1. Mild wall thickening at the sigmoid colon may represent colitis or dive rticulitis. No significant pericolonic inflammatory changes, perforation or abscess. Findings may simply represent nondistended colon. 2. Mild splenomegaly measuring 12.5 cm AP. 3. No hydronephrosis nephrolithiasis. Normal appendix. VTE Prophylaxis Ordered VTE Prophylaxis Devices: No VTE Pharmacological Prophylaxi: Yes Assessment/Plan Assessment/Plan A/P: Intractable nausea and vomiting - likely diabetic gastroparesis. Will treat as such. Trend out troponins Chest pain - Likely epigastric pain, will trend troponins, maintain telemetry, consult cardiology Hypokalemia - Likely GI losses, will replace, trend Hypomagnesemia - likely GI losses, replace, trend Muscular weakness - will check phos, TSH DM2 - Sliding scale, check A1c HTN - Will place FEN - ADA diet PPX - heparin CODE - FULL Dispo - Inpatient CVC Justifications for Admission Other Justification MORRO MENENDEZ MD Nov 25, 2021 21:36
[2021-11-25 22:15] VITALS: BP 115/74
[2021-11-25] MEDS: ONDANSETRON PF 4 MG/2 ML VIAL. IVP PRN (22:32)
[2021-11-25] MEDS: MORPHINE SULFATE 4 MG/ML INJ. IVP PRN (22:34)
[2021-11-25] MEDS ORDERED: INSU100I13 SQ (22:41)
[2021-11-25] MEDS ORDERED: INSU100V6 SQ (22:41)
[2021-11-25] MEDS: POTASSIUM CHLORIDE 10MEQ 100 ML IV SCH (22:58)
[2021-11-25] MEDS ORDERED: TRAM50TA PO (22:59)
[2021-11-25] MEDS: METOCLOPRAMIDE HCL 10 MG/2 ML VIAL. IVP SCH (23:04)
[2021-11-25] MEDS: HEPARIN for SUB-Q USE 5,000 UNIT/ML VIAL. SQ SCH (23:04)
[2021-11-25] MEDS: INSULIN GLARGINE SYRINGE. SQ SCH (23:05)
[2021-11-26] MEDS: POTASSIUM CHLORIDE 10MEQ 100 ML IV SCH ×3 (00:41→04:45)
--- NOTE | 2021-11-26 01:36 | NUR ---
Pt states that she has been seen at recently. Records requested per Dr. Saez- received and placed in pt chart.
[2021-11-26 03:45] VITALS: BP 123/74
[2021-11-26] MEDS: ONDANSETRON PF 4 MG/2 ML VIAL. IVP PRN ×2 (03:49→08:34)
[2021-11-26] MEDS: METOCLOPRAMIDE HCL 10 MG/2 ML VIAL. IVP SCH ×4 (06:21→20:44)
[2021-11-26] MEDS: HEPARIN for SUB-Q USE 5,000 UNIT/ML VIAL. SQ SCH ×4 (06:21→20:45)
[2021-11-26 07:00] VITALS: BP 129/79
[2021-11-26 07:07] LABS: ALBUMIN 2.8 g/dL (3.4-5.0); ALBUMIN/GLOBULIN RATIO 0.7 (1.0-1.7); CALCIUM 8.2 mg/dL (8.5-10.1); CREATININE 1.3 mg/dL (0.6-1.0); GFR 44.5; MAGNESIUM 2.2 mg/dL (1.8-2.4); POTASSIUM 3.5 mmol/L (3.5-5.1); TOTAL BILIRUBIN 0.5 mg/dL (0.2-1.0); TOTAL PROTEIN 6.7 g/dL (6.4-8.2)
[2021-11-26] MEDS: INSULIN LISPRO 300 UNITS/3 ML VIAL. SQ SCH ×3 (08:00→17:00)
[2021-11-26] MEDS: MORPHINE SULFATE 4 MG/ML INJ. IVP PRN ×2 (08:34→17:04)
[2021-11-26] MEDS ORDERED: SODIUM PHOSPHATE 20 MMOL in IV NORMAL SALINE 250ML 250 ML IV ONE (09:00)
--- NOTE | 2021-11-26 09:59 | PDOC2 ---
GI CONSULT Date of Service: DATE: 11/26/21 TIME: 09:59 Reason For Consult: intractable n/v, gastroparesis HPI: HPI: 46 y/o female w/ chronic GI issues. Reports frequent nausea, vomiting (immediately or 5-10 min after eating), and dysphagia (solids and liquids felt in midchest at least once daily, often has to cough out) intermittently since 05/2021. Getting worse. "[facility] did nothing and I don't want to leave til this is figured out." Associated sometimes w/ right periumbilical/RUQ/flank pain - she indicates pain is not severe, but also says she was taking morphine and Tramadol for this. No pattern to pain. H/o GERD - not really sure if Protonix helps (which she takes daily in a.m. - doesn't eat breakfast). No odynophagia, hematemesis, diarrhea, constipation, hematochezia, or melena. Estimates 45 pound weight loss since 07/2021. records reviewed from 11/11/21 to 11/13/21: They indicate recurrent issue w/ n/v and abd pain possibly related to narcotic use and gastroparesis. Was evaluated there for n/v on morphine at home. EGD in 09/2021 showed Schatzki's ring (dilated), erythematous mucosa in antrum, and gastric polyp. Biopsies were negative for EoE and H. pylori. Clint mmendation for PPI BID and schedule esophageal manometry. She says dilation helped for awhile. Celiac panel was negative. Mention of JENNIFER. Lipase was normal per [facility] notes. A1c 7.5. CT report from from 09/2021 showed [address]ome[address]. CT and GES ordered (during last admission) - she left AMA. Previous colonoscopy in 2019 in [place] performed for vomiting was reportedly normal. S/p cholecystectomy for stones in 2003. No liver, pancreas, or PUD history. No previous GES (or esophageal manometry). 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 PMH: PMH: HTN, DM, JERROD, GERD x 3, tonsillectomy, left ACL and meniscus repairs, cholecystectomy FH: Family History: No pertinent hx (no GI cancers, PUD, pancreatic disease) Social History: Smoke: No ALCOHOL: none Drugs: None ROS: GEN: Denies fevers, chills, sweats HEENT: Denies blurred vision, sore throat CV: Denies chest pain RESP: Denies shortness of air, cough GI: Per HPI : Denies hematuria, dysuria ENDO: +weight loss NEURO: Denies confusion, dizziness MSK: Denies weakness, joint pain/swelling SKIN: Denies jaundice, pruritus Vitals: Vitals: Vital Signs Date Time Temp Pulse Resp B/P (MAP) Pulse Ox O2 Delivery O2 Flow Rate FiO2 11/26/21 09:04 100 2.0 11/26/21 08:00 Nasal Cannula 11/26/21 07:00 97.7 83 16 129/79 (96) 97.7 Labs: Labs: Laboratory Tests Test 11/25/21 18:32 11/25/21 21:45 11/26/21 01:30 11/26/21 02:50 White Blood Count 10.8 x10^3/uL (4.0-11.0) Red Blood Count 4.91 x10^6/uL (3.50-5.40) Hemoglobin 13.7 g/dL (12.0-15.5) Hematocrit 40.0 % (36.0-47.0) Mean Corpuscular Volume 82 fL (79-100) Mean Corpuscular Hemoglobin 28 pg (25-35) Mean Corpuscular Hemoglobin Concent 34 g/dL (31-37) Red Cell Distribution Width 15.0 % (11.5-14.5) Platelet Count 291 x10^3/uL (140-400) Neutrophils (%) (Auto) 67 % (31-73) Lymphocytes (%) (Auto) 27 % (24-48) Monocytes (%) (Auto) 5 % (0-9) Eosinophils (%) (Auto) 1 % (0-3) Basophils (%) (Auto) 1 % (0-3) Neutrophils # (Auto) 7.2 x10^3/uL (1.8-7.7) Lymphocytes # (Auto) 2.9 x10^3/uL (1.0-4.8) Monocytes # (Auto) 0.5 x10^3/uL (0.0-1.1) Eosinophils # (Auto) 0.1 x10^3/uL (0.0-0.7) Basophils # (Auto) 0.1 x10^3/uL (0.0-0.2) Sodium Level 134 mmol/L (136-145) Potassium Level 2.3 mmol/L (3.5-5.1) Chloride Level 93 mmol/L (98-107) Carbon Dioxide Level 30 mmol/L (21-32) Anion Gap 11 (6-14) Blood Urea Nitrogen 17 mg/dL (7-20) Creatinine 1.3 mg/dL (0.6-1.0) Estimated GFR (Cockcroft-Gault) 44.5 BUN/Creatinine Ratio 13 (6-20) Glucose Level 269 mg/dL (70-99) Calcium Level 9.1 mg/dL (8.5-10.1) Phosphorus Level 1.3 mg/dL (2.6-4.7) Magnesium Level 1.5 mg/dL (1.8-2.4) Total Bilirubin 0.6 mg/dL (0.2-1.0) Aspartate Amino Transf (AST/SGOT) 5 U/L (15-37) Alanine Aminotransferase (ALT/SGPT) 12 U/L (14-59) Alkaline Phosphatase 61 U/L (46-116) Troponin I High Sensitivity 16 ng/L (4-50) 15 ng/L (4-50) 16 ng/L (4-50) QB-Nmq-C-Type Natriuretic Peptide 235 pg/mL (0-124) Total Protein 8.0 g/dL (6.4-8.2) Albumin 3.5 g/dL (3.4-5.0) Albumin/Globulin Ratio 0.8 (1.0-1.7) Lipase 506 U/L (73-393) Vitamin B12 Level 487 pg/mL (247-911) Thyroid Stimulating Hormone (TSH) 4.539 uIU/mL (0.358-3.74) D-Dimer (Mayuri) < 0.27 ug/mlFEU Lactic Acid Level 1.0 mmol/L (0.4-2.0) SARS-CoV-2 Antigen (Rapid) Negative (NEGATIVE) Test 11/26/21 06:05 11/26/21 08:16 Sodium Level 136 mmol/L (136-145) Potassium Level 3.5 mmol/L (3.5-5.1) Chloride Level 100 mmol/L (98-107) Carbon Dioxide Level 29 mmol/L (21-32) Anion Gap 7 (6-14) Blood Urea Nitrogen 19 mg/dL (7-20) Creatinine 1.3 mg/dL (0.6-1.0) Estimated GFR (Cockcroft-Gault) 44.5 BUN/Creatinine Ratio 15 (6-20) Glucose Level 167 mg/dL (70-99) Calcium Level 8.2 mg/dL (8.5-10.1) Magnesium Level 2.2 mg/dL (1.8-2.4) Total Bilirubin 0.5 mg/dL (0.2-1.0) Aspartate Amino Transf (AST/SGOT) 5 U/L (15-37) Alanine Aminotransferase (ALT/SGPT) 8 U/L (14-59) Alkaline Phosphatase 50 U/L (46-116) Total Protein 6.7 g/dL (6.4-8.2) Albumin 2.8 g/dL (3.4-5.0) Albumin/Globulin Ratio 0.7 (1.0-1.7) Free Thyroxine 1.32 ng/dL (0.76-1.46) Glucose (Fingerstick) 141 mg/dL (70-99) Allergies: Coded Allergies: Sulfa (Sulfonamide Antibiotics) (Verified Allergy, Severe, HIVES, 11/25/21) diphenhydramine (Verified Allergy, Severe, RASH, 07/26/21) Medications: Current Medications Medications (Trade) Dose Ordered Sig/Chelsea Route PRN Reason Start Time Stop Time Status Last Admin Dose Admin Morphine Sulfate (Morphine Sulfate) 4 mg PRN Q15MIN PRN IV/SQ PAIN GREATER THAN 3/10 11/25/21 18:15 11/26/21 18:14 11/25/21 18:43 Ondansetron HCl (Zofran) 4 mg 1X ONCE IVP 11/25/21 18:15 11/25/21 18:16 DC 11/25/21 18:42 Potassium Chloride (Klor-Con) 40 meq 1X ONCE PO 11/25/21 19:15 11/25/21 19:17 DC 11/25/21 19:26 Morphine Sulfate (Morphine Sulfate) 4 mg PRN Q2HR PRN IVP PAIN 11/25/21 20:15 11/26/21 20:14 11/26/21 08:34 Magnesium Sulfate 50 ml @ 25 mls/hr 1X ONCE IV 11/25/21 20:15 11/25/21 22:14 DC 11/25/21 20:41 Sodium Chloride 1,000 ml @ 75 mls/hr 1X ONCE IV 11/25/21 20:15 11/26/21 09:34 DC 11/25/21 20:36 Potassium Chloride/Water 100 ml @ 100 mls/hr Q1H IV 11/25/21 20:30 11/26/21 00:29 DC 11/26/21 04:45 Ondansetron HCl (Zofran) 4 mg PRN Q4HRS PRN IVP NAUSEA/VOMITING 11/25/21 21:15 11/26/21 08:34 Metoclopramide HCl (Reglan Vial) 10 mg QIDACHS IVP 11/25/21 21:15 11/26/21 06:21 Insulin Glargine (Lantus Syringe) 8 unit QHS SQ 11/25/21 21:15 11/25/21 23:05 Heparin Sodium (Porcine) (Heparin Sodium) 5,000 unit Q8HRS SQ 11/25/21 22:00 11/26/21 06:21 Sodium Phosphate 20 mmol/Sodium Chloride 256.6667 ml @ 64.167 m... 1X ONCE IV 11/26/21 09:00 11/26/21 12:59 11/26/21 09:16 Imaging: Imaging: CT A/P 11/25/21 Findings: The lung bases are clear. The liver, pancreas, and adrenal glands are unremarkable. There is mild splenomegaly measuring 12.5 cm AP. Status post cholecystectomy. No nephrolithiasis or hydronephrosis. No ureterolithiasis is identified. The bladder is unremarkable. Normal appearance of the uterus and adnexa. The stomach and small bowel are unremarkable. Normal appendix. Mild descending colonic diverticulosis. Mild sigmoid wall thickening. Well-formed stool at the sigmoid colon and rectum with hyperdensity, possibly related to previous contrast administration or medication. Peripherally calcified right pelvic wall nodule measures 1.4 x 1.1 cm, likely fat necrosis or surgical granuloma. No intra-abdominal free air or free fluid. No adenopathy. No acute osseous abnormality. L5-S1 degenerative disc disease. Impression: 1. Mild wall thickening at the sigmoid colon may represent colitis or diverticulitis. No significant pericolonic inflammatory changes, perforation or abscess. Findings may simply represent nondistended colon. 2. Mild splenomegaly measuring 12.5 cm AP. 3. No hydronephrosis nephrolithiasis. Normal appendix. CXR 11/25/21 IMPRESSION: * No definite focal airspace consolidation. PE: GEN: NAD HEENT: Atraumatic, PERRL LUNGS: CTAB HEART: RRR ABD: NABS, S/ND, perhaps mild discomfort along right lower ribs EXTREMITY: No edema SKIN: No rashes, no jaundice NEURO/PSYCH: A & O 3 A/P: A/P: Chronic n/v, dysphagia, weight loss, right upper abd/flank pain - EGD at 09/2021 w/ Schatzki's ring (dilated) and H. pylori negative gastritis Hypokalemia (resolved), mildly elevated lipase ?h/o JENNIFER - per [facility] notes, Celiac panel negative there - not anemic or microcytic here H/o GERD - on PPI at home, probably not ideal dosing CRC screen - reports normal colonoscopy in 2019 S/p cholecystectomy Mild hepatosplenomegaly on CT DM Rapid COVID negative -- She is agreeable to EGD this afternoon w/ Dr. Stern - awaiting approval from anesthesia. Unclear significant of mildly elevated lipase - will d/w Dr. Stern. Resume PPI - IV for now. ?h/o narcotic overuse Agree w/ checking tox screen. Update: EGD on hold - anesthesia not able to accommodate today. D/w nurse - okay to try diet. HEAVENLY LANGLEY Nov 26, 2021 09:59
--- NOTE | 2021-11-26 10:05 | PDOC2 ---
[facility] 11/26/21 1005: CARDIAC CONSULT DATE OF CONSULT Date of Consult DATE: 11/26/21 TIME: 09:51 REASON FOR CONSULT Reason for Consult: Chest pain REFERRING PHYSICIAN Referring Physician: Cierra SOURCE Source: Chart review, Patient HISTORY OF PRESENT ILLNESS HISTORY OF PRESENT ILLNESS This is a pleasant 46 yo female admitted for complains of chest pain. This is sharp and radiates to left shoulder and scapula and precipitated after vomiting. She was at [facility] recently and had esophageal dilatation. She was given zofran and reglan due to persistent vomiting at but no Rx were given. No SOA, jaw tightness, palpitations. Her last full meal was 3 weeks ago and she was discharged from around that time. No recent falls or injury. Denies any past hx of CAD, VTE. She ios vaccinated for covid-19 and does not have any viral symptoms. No diarrhea, ageusia nor anosmia. No fever or chills. PAST MEDICAL HISTORY Cardiovascular: No pertinent hx Pulmonary: No pertinent hx CENTRAL NERVOUS SYSTEM: Other (No pertinent history) GI: Other (esophageal stricture) Heme/Onc: No pertinent hx Hepatobiliary: No pertinent hx Psych: No pertinent hx Musculoskeletal: Other (left ACL tear) Rheumatologic: No pertinent hx Infectious disease: No pertinent hx ENT: No pertinent hx Renal/: No pertinent hx Endocrine: Diabetes Dermatology: No pertinent hx PAST SURGICAL HISTORY Past Surgical History: Appendectomy, (x3) FAMILY HISTORY Family History: Adopted SOCIAL HISTORY Smoke: No ALCOHOL: none Drugs: None Lives: with Family CURRENT MEDICATIONS CURRENT MEDICATIONS Current Medications Medications (Trade) Dose Ordered Sig/Chelsea Route PRN Reason Start Time Stop Time Status Last Admin Dose Admin Morphine Sulfate (Morphine Sulfate) 4 mg PRN Q15MIN PRN IV/SQ PAIN GREATER THAN 3/10 11/25/21 18:15 11/26/21 18:14 11/25/21 18:43 Ondansetron HCl (Zofran) 4 mg 1X ONCE IVP 11/25/21 18:15 11/25/21 18:16 DC 11/25/21 18:42 Potassium Chloride (Klor-Con) 40 meq 1X ONCE PO 11/25/21 19:15 11/25/21 19:17 DC 11/25/21 19:26 Morphine Sulfate (Morphine Sulfate) 4 mg PRN Q2HR PRN IVP PAIN 11/25/21 20:15 11/26/21 20:14 11/26/21 08:34 Magnesium Sulfate 50 ml @ 25 mls/hr 1X ONCE IV 11/25/21 20:15 11/25/21 22:14 DC 11/25/21 20:41 Sodium Chloride 1,000 ml @ 75 mls/hr 1X ONCE IV 11/25/21 20:15 11/26/21 09:34 DC 11/25/21 20:36 Potassium Chloride/Water 100 ml @ 100 mls/hr Q1H IV 11/25/21 20:30 11/26/21 00:29 DC 11/26/21 04:45 Ondansetron HCl (Zofran) 4 mg PRN Q4HRS PRN IVP NAUSEA/VOMITING 11/25/21 21:15 11/26/21 08:34 Metoclopramide HCl (Reglan Vial) 10 mg QIDACHS IVP 11/25/21 21:15 11/26/21 06:21 Insulin Glargine (Lantus Syringe) 8 unit QHS SQ 11/25/21 21:15 11/25/21 23:05 Heparin Sodium (Porcine) (Heparin Sodium) 5,000 unit Q8HRS SQ 11/25/21 22:00 11/26/21 06:21 Sodium Phosphate 20 mmol/Sodium Chloride 256.6667 ml @ 64.167 m... 1X ONCE IV 11/26/21 09:00 11/26/21 12:59 11/26/21 09:16 ALLERGIES ALLERGIES: Coded Allergies: Sulfa (Sulfonamide Antibiotics) (Verified Allergy, Severe, HIVES, 11/25/21) diphenhydramine (Verified Allergy, Severe, RASH, 07/26/21) ROS Review of System 14 point ROS evaluated with pertinent positives noted per HPI PHYSICAL EXAM General: Alert, Oriented X3, Cooperative, No acute distress HEENT: Atraumatic, Mucous membr. moist/pink Lungs: Clear to auscultation, Normal air movement Heart: Regular rate (SR), Normal S1, Normal S2, No murmurs Abdomen: Soft, No tenderness Extremities: No cyanosis, No edema Skin: No breakdown, No significant lesion Neuro: Normal speech, Sensation intact Psych/Mental Status: Mental status NL, Mood NL MUSCULOSKELETAL: Full range of motion without pain VITALS/I&O VITALS/I&O: Vital Signs Date Time Temp Pulse Resp B/P (MAP) Pulse Ox O2 Delivery O2 Flow Rate FiO2 11/26/21 09:04 100 2.0 11/26/21 08:00 Nasal Cannula 11/26/21 07:00 97.7 83 16 129/79 (96) 97.7 I & O 11/25/21 11/25/21 11/26/21 15:00 23:00 07:00 Intake Total 50 ml 100 ml Balance 50 ml 100 ml LABS Lab: Laboratory Tests Test 11/25/21 18:32 11/25/21 21:45 11/26/21 01:30 11/26/21 02:50 White Blood Count 10.8 x10^3/uL (4.0-11.0) Red Blood Count 4.91 x10^6/uL (3.50-5.40) Hemoglobin 13.7 g/dL (12.0-15.5) Hematocrit 40.0 % (36.0-47.0) Mean Corpuscular Volume 82 fL (79-100) Mean Corpuscular Hemoglobin 28 pg (25-35) Mean Corpuscular Hemoglobin Concent 34 g/dL (31-37) Red Cell Distribution Width 15.0 % (11.5-14.5) H Platelet Count 291 x10^3/uL (140-400) Neutrophils (%) (Auto) 67 % (31-73) Lymphocytes (%) (Auto) 27 % (24-48) Monocytes (%) (Auto) 5 % (0-9) Eosinophils (%) (Auto) 1 % (0-3) Basophils (%) (Auto) 1 % (0-3) Neutrophils # (Auto) 7.2 x10^3/uL (1.8-7.7) Lymphocytes # (Auto) 2.9 x10^3/uL (1.0-4.8) Monocytes # (Auto) 0.5 x10^3/uL (0.0-1.1) Eosinophils # (Auto) 0.1 x10^3/uL (0.0-0.7) Basophils # (Auto) 0.1 x10^3/uL (0.0-0.2) Sodium Level 134 mmol/L (136-145) L Potassium Level 2.3 mmol/L (3.5-5.1) *L Chloride Level 93 mmol/L (98-107) L Carbon Dioxide Level 30 mmol/L (21-32) Anion Gap 11 (6-14) Blood Urea Nitrogen 17 mg/dL (7-20) Creatinine 1.3 mg/dL (0.6-1.0) H Estimated GFR (Cockcroft-Gault) 44.5 BUN/Creatinine Ratio 13 (6-20) Glucose Level 269 mg/dL (70-99) H Calcium Level 9.1 mg/dL (8.5-10.1) Phosphorus Level 1.3 mg/dL (2.6-4.7) L Magnesium Level 1.5 mg/dL (1.8-2.4) L Total Bilirubin 0.6 mg/dL (0.2-1.0) Aspartate Amino Transferase (AST) 5 U/L (15-37) L Alanine Aminotransferase (ALT) 12 U/L (14-59) L Alkaline Phosphatase 61 U/L (46-116) Troponin I High Sensitivity 16 ng/L (4-50) 15 ng/L (4-50) 16 ng/L (4-50) XZ-Kih-S-Type Natriuretic Peptide 235 pg/mL (0-124) H Total Protein 8.0 g/dL (6.4-8.2) Albumin 3.5 g/dL (3.4-5.0) Albumin/Globulin Ratio 0.8 (1.0-1.7) L Lipase 506 U/L (73-393) H Vitamin B12 Level 487 pg/mL (247-911) Thyroid Stimulating Hormone (TSH) 4.539 uIU/mL (0.358-3.74) H D-Dimer (Mayuri) < 0.27 ug/mlFEU Lactic Acid Level 1.0 mmol/L (0.4-2.0) SARS-CoV-2 Antigen (Rapid) Negative (NEGATIVE) Test 11/26/21 06:05 11/26/21 08:16 Sodium Level 136 mmol/L (136-145) Potassium Level 3.5 mmol/L (3.5-5.1) # Chloride Level 100 mmol/L (98-107) Carbon Dioxide Level 29 mmol/L (21-32) Anion Gap 7 (6-14) Blood Urea Nitrogen 19 mg/dL (7-20) Creatinine 1.3 mg/dL (0.6-1.0) H Estimated GFR (Cockcroft-Gault) 44.5 BUN/Creatinine Ratio 15 (6-20) Glucose Level 167 mg/dL (70-99) H Calcium Level 8.2 mg/dL (8.5-10.1) L Magnesium Level 2.2 mg/dL (1.8-2.4) Total Bilirubin 0.5 mg/dL (0.2-1.0) Aspartate Amino Transferase (AST) 5 U/L (15-37) L Alanine Aminotransferase (ALT) 8 U/L (14-59) L Alkaline Phosphatase 50 U/L (46-116) Total Protein 6.7 g/dL (6.4-8.2) Albumin 2.8 g/dL (3.4-5.0) L Albumin/Globulin Ratio 0.7 (1.0-1.7) L Free Thyroxine 1.32 ng/dL (0.76-1.46) Glucose (Fingerstick) 141 mg/dL (70-99) H Laboratory Tests 11/25/21 18:32 Laboratory Tests 11/25/21 18:32 11/26/21 06:05 ASSESSMENT/PLAN ASSESSMENT/PLAN 1. Atypical chest pain: suspect GI related 2. Mild colitis per CT 3. Recent hx of esophageal dilatation 4. DM2: insulin dependent 5. Vomiting with associated Electrolyte imbalance: low K, Mg, Phos 6. Dehydration 7. PUI: rapid neg 8. Prolonged QTc with underlying lyte deficiencies Recommendations 1. GI w/u ongoing 2. lyte replacement done 3. Will repeat EKG and note QTc and if it still elevated then will need modification to her antiemetics. No further cardiac workup HALEY ANDRES MD 11/26/21 190: CARDIAC CONSULT ASSESSMENT/PLAN ASSESSMENT/PLAN Patient seen and examined. Agree with above nurse practitioner note. 46-year-old woman presenting with noncardiac chest pain. Cardiac enzymes are negative. Repeat EKG. Supportive care. We will follow along closely. RAHEEM RADFORD APRN Nov 26, 2021 10:05 HALEY ANDRES MD Nov 26, 2021 19:08
--- NOTE | 2021-11-26 10:33 | EKG ---
[facility] [address] [place] [address] Test Date: 2021-11-25 Test Time: 17:54:02 Pat Name: TARA CARVALHO Department: Room: [facility] Gender: F [employer]ist: : 1975 Requested By: VALENTÍN ROUSE Order Number: [id number] Reading MD: Judah Cross Measurements Intervals Bryant Rate: 97 P: 41 LA: 120 QRS: 42 QRSD: 98 T: 59 QT: 404 QTc: 518 Interpretive Statements SINUS RHYTHM PROLONGED QT NO SPECIFIC ECG ABNORMALITIES RI6.02 Compared to ECG 07/26/2021 14:36:01 No significant changes Electronically Signed On 11-26-2021 19:27:44 HOOF TRIMMER by Judah Cross
[2021-11-26 10:34] VITALS: BP 118/74
[2021-11-26] MEDS: PANTOPRAZOLE IV PUSH 40 MG VIAL. IVP SCH (11:10)
--- NOTE | 2021-11-26 11:25 | NUR ---
SS following for discharge planning. SS reviewed pt chart and discussed with pt RN. Pt is from home with spouse and is currently requiring oxygen at two liters nasal canula. COVID19 negative. GI and Cardiology consulted. EGD today. Pt has no home oxygen. SS will continue to follow for discharge planning.
--- NOTE | 2021-11-26 12:43 | PDOC ---
[employer] PROGRESS NOTE Date of Service DOS: DATE: 11/26/21 TIME: 12:42 Chief Complaint Chief Complaint Assessment/Plan A/P: Intractable nausea and vomiting - likely diabetic gastroparesis. Pending EGD today. Chest pain - Likely epigastric pain, will trend troponins, maintain telemetry, consult cardiology Hypokalemia - Likely GI losses, will replace, trend Hypomagnesemia - likely GI losses, replace, trend Muscular weakness - will check phos, TSH DM2 - Sliding scale, check A1c HTN - Will place FEN -n.p.o. for now PPX - heparin CODE - FULL Dispo - Inpatient CVC History of Present Illness History of Present Illness 46 yo female w/ PMHx DM2 who comes to the ED 11/25/21 c/o sharp 8 out of 10 left-sided chest pain and right flank pain. She and her , bedside, note her chest pain began today and she has associated weakness. She also notes nausea and vomiting. She has had intermittent colicky abdominal pain that is epigastric and left upper quadrant and right flank pain she refers to as "kidney pain". She notes this has been going on since 10/04/2021. She has been admitted to [facility] twice in the past 2 months for nausea and vomiting with hypokalemia. She notes in September she thinks she had an EGD and had dilatation and felt relief until 3 weeks ago her vomiting began again and she was readmitted to the hospital. Zofran helps with nausea, IV morphine relieves her pain. She is a non-smoker nondrinker. Notes she does not use any illicit drugs. Has had diabetes for 6 years and was initially on Metformin but has since been transitioned to glargine and aspart insulin throughout the day. She has not been checking her blood sugar for the last week she thinks it has not been high because she is not eating. WBC 10.8, Hb 13.7, platelets 291, NA 134, K2.3, BUN 17, CR 1.3, glucose 269, magnesium 1.5, calcium 9.1, bilirubin 0.6, AST 5, ALT 12, alkaline phosphatase 61, high-sensitivity troponin XVI, NT proBNP is 235, albumin 3.5. Chest radiograph with no acute abnormality. CT abdomen pelvis with sigmoid colon thickening and splenomegaly 12.5 cm no hydronephrosis or nephrolithiasis normal-appearing appendix. Admitted for further care. 11/26/2021 No acute events overnight. Patient seen examined bedside. No more nausea. No more vomiting. Improvement with symptoms and no more chest pain. Pending EGD today with GI. Patient's chart, labs, images were reviewed and discussed with RN Vitals/I&O Vitals/I&O: Vital Signs Date Time Temp Pulse Resp B/P (MAP) Pulse Ox O2 Delivery O2 Flow Rate FiO2 11/26/21 10:34 97.8 77 16 118/74 (89) 100 Nasal Cannula 2.0 97.8 I & O 11/25/21 11/25/21 11/26/21 15:00 23:00 07:00 Intake Total 50 ml 100 ml Balance 50 ml 100 ml Physical Exam General: Alert, Oriented X3, Cooperative, No acute distress Heart: Regular rate (SR), Normal S1, Normal S2, No murmurs Abdomen: Soft, No tenderness Extremities: No cyanosis, No edema Skin: No breakdown, No significant lesion Labs Labs: Laboratory Tests Test 11/25/21 18:32 11/25/21 21:45 11/26/21 01:30 11/26/21 02:50 White Blood Count 10.8 x10^3/uL (4.0-11.0) Red Blood Count 4.91 x10^6/uL (3.50-5.40) Hemoglobin 13.7 g/dL (12.0-15.5) Hematocrit 40.0 % (36.0-47.0) Mean Corpuscular Volume 82 fL (79-100) Mean Corpuscular Hemoglobin 28 pg (25-35) Mean Corpuscular Hemoglobin Concent 34 g/dL (31-37) Red Cell Distribution Width 15.0 % (11.5-14.5) Platelet Count 291 x10^3/uL (140-400) Neutrophils (%) (Auto) 67 % (31-73) Lymphocytes (%) (Auto) 27 % (24-48) Monocytes (%) (Auto) 5 % (0-9) Eosinophils (%) (Auto) 1 % (0-3) Basophils (%) (Auto) 1 % (0-3) Neutrophils # (Auto) 7.2 x10^3/uL (1.8-7.7) Lymphocytes # (Auto) 2.9 x10^3/uL (1.0-4.8) Monocytes # (Auto) 0.5 x10^3/uL (0.0-1.1) Eosinophils # (Auto) 0.1 x10^3/uL (0.0-0.7) Basophils # (Auto) 0.1 x10^3/uL (0.0-0.2) Sodium Level 134 mmol/L (136-145) Potassium Level 2.3 mmol/L (3.5-5.1) Chloride Level 93 mmol/L (98-107) Carbon Dioxide Level 30 mmol/L (21-32) Anion Gap 11 (6-14) Blood Urea Nitrogen 17 mg/dL (7-20) Creatinine 1.3 mg/dL (0.6-1.0) Estimated GFR (Cockcroft-Gault) 44.5 BUN/Creatinine Ratio 13 (6-20) Glucose Level 269 mg/dL (70-99) Calcium Level 9.1 mg/dL (8.5-10.1) Phosphorus Level 1.3 mg/dL (2.6-4.7) Magnesium Level 1.5 mg/dL (1.8-2.4) Total Bilirubin 0.6 mg/dL (0.2-1.0) Aspartate Amino Transf (AST/SGOT) 5 U/L (15-37) Alanine Aminotransferase (ALT/SGPT) 12 U/L (14-59) Alkaline Phosphatase 61 U/L (46-116) Troponin I High Sensitivity 16 ng/L (4-50) 15 ng/L (4-50) 16 ng/L (4-50) FR-Mqd-L-Type Natriuretic Peptide 235 pg/mL (0-124) Total Protein 8.0 g/dL (6.4-8.2) Albumin 3.5 g/dL (3.4-5.0) Albumin/Globulin Ratio 0.8 (1.0-1.7) Lipase 506 U/L (73-393) Vitamin B12 Level 487 pg/mL (247-911) Thyroid Stimulating Hormone (TSH) 4.539 uIU/mL (0.358-3.74) D-Dimer (Mayuri) < 0.27 ug/mlFEU Lactic Acid Level 1.0 mmol/L (0.4-2.0) SARS-CoV-2 Antigen (Rapid) Negative (NEGATIVE) Test 11/26/21 06:05 11/26/21 08:16 11/26/21 11:14 Sodium Level 136 mmol/L (136-145) Potassium Level 3.5 mmol/L (3.5-5.1) Chloride Level 100 mmol/L (98-107) Carbon Dioxide Level 29 mmol/L (21-32) Anion Gap 7 (6-14) Blood Urea Nitrogen 19 mg/dL (7-20) Creatinine 1.3 mg/dL (0.6-1.0) Estimated GFR (Cockcroft-Gault) 44.5 BUN/Creatinine Ratio 15 (6-20) Glucose Level 167 mg/dL (70-99) Calcium Level 8.2 mg/dL (8.5-10.1) Magnesium Level 2.2 mg/dL (1.8-2.4) Total Bilirubin 0.5 mg/dL (0.2-1.0) Aspartate Amino Transf (AST/SGOT) 5 U/L (15-37) Alanine Aminotransferase (ALT/SGPT) 8 U/L (14-59) Alkaline Phosphatase 50 U/L (46-116) Total Protein 6.7 g/dL (6.4-8.2) Albumin 2.8 g/dL (3.4-5.0) Albumin/Globulin Ratio 0.7 (1.0-1.7) Free Thyroxine 1.32 ng/dL (0.76-1.46) Glucose (Fingerstick) 141 mg/dL (70-99) 152 mg/dL (70-99) Assessment and Plan Assessmemt and Plan Problems Medical Problems: (1) Chest pain Status: Acute (2) Hyperglycemia Status: Acute (3) Hypokalemia Status: Acute (4) Hypomagnesemia Status: Acute (5) Nausea and vomiting Status: Acute Comment Review of Relevant I have reviewed the following items pablo (where applicable) has been applied. Medications: Current Medications Medications (Trade) Dose Ordered Sig/Chelsea Route PRN Reason Start Time Stop Time Status Last Admin Dose Admin Morphine Sulfate (Morphine Sulfate) 4 mg PRN Q15MIN PRN IV/SQ PAIN GREATER THAN 3/10 11/25/21 18:15 11/26/21 11:29 DC 11/25/21 18:43 Ondansetron HCl (Zofran) 4 mg 1X ONCE IVP 11/25/21 18:15 11/25/21 18:16 DC 11/25/21 18:42 Potassium Chloride (Klor-Con) 40 meq 1X ONCE PO 11/25/21 19:15 11/25/21 19:17 DC 11/25/21 19:26 Morphine Sulfate (Morphine Sulfate) 4 mg PRN Q2HR PRN IVP PAIN 11/25/21 20:15 11/26/21 20:14 11/26/21 08:34 Magnesium Sulfate 50 ml @ 25 mls/hr 1X ONCE IV 11/25/21 20:15 11/25/21 22:14 DC 11/25/21 20:41 Sodium Chloride 1,000 ml @ 75 mls/hr 1X ONCE IV 11/25/21 20:15 11/26/21 09:34 DC 11/25/21 20:36 Potassium Chloride/Water 100 ml @ 100 mls/hr Q1H IV 11/25/21 20:30 11/26/21 00:29 DC 11/26/21 04:45 Ondansetron HCl (Zofran) 4 mg PRN Q4HRS PRN IVP NAUSEA/VOMITING 11/25/21 21:15 11/26/21 08:34 Metoclopramide HCl (Reglan Vial) 10 mg QIDACHS IVP 11/25/21 21:15 11/26/21 10:55 Insulin Glargine (Lantus Syringe) 8 unit QHS SQ 11/25/21 21:15 11/25/21 23:05 Heparin Sodium (Porcine) (Heparin Sodium) 5,000 unit Q8HRS SQ 11/25/21 22:00 11/26/21 06:21 Sodium Phosphate 20 mmol/Sodium Chloride 256.6667 ml @ 64.167 m... 1X ONCE IV 11/26/21 09:00 11/26/21 12:59 11/26/21 09:16 Pantoprazole Sodium (PROTONIX VIAL for IV PUSH) 40 mg DAILYAC IVP 11/26/21 11:00 11/26/21 11:10 Justifications for Admission Other Justification JOI RUSSELL MD Nov 26, 2021 12:43
--- NOTE | 2021-11-26 14:24 | EKG ---
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
[2021-11-26 14:32] VITALS: BP 118/67
[2021-11-26 19:40] VITALS: BP 130/80
[2021-11-26 20:08] LABS: BILIRUBIN,URINE SMALL (NEG); CLARITY,URINE CLOUDY; COLOR,URINE AMBER; NITRITE,URINE NEGATIVE (NEG); PH,URINE 5.5 (<5.0-8.0); PROTEIN,URINE NEGATIVE (NEG-TRACE); UROBILINOGEN,URINE 0.2 mg/dL (0.2 mg/dL)
[2021-11-26 20:16] LABS: BARBITURATES NEG (NEG); BENZODIAZEPINES NEG (NEG); CANNABINOIDS NEG (NEG); COCAINE NEG (NEG); METHADONE NEG (NEG); OPIATES POS (NEG); PHENCYCLIDINE NEG (NEG)
[2021-11-26 20:17] LABS: AMPHETAMINE/METHAMPHETAMINE NEG (NEG)
[2021-11-26 20:22] LABS: BACTERIA,URINE MANY /HPF (0-FEW); HYALINE CASTS, URINE FEW /HPF; RBC,URINE 0 /HPF (0-2); WBC,URINE OCC /HPF (0-4)
[2021-11-26] MEDS: INSULIN GLARGINE SYRINGE. SQ SCH (20:45)
[2021-11-26] MEDS: MORPHINE SULFATE 2 MG/ML INJ. IV PRN (21:34)
[2021-11-26 22:45] VITALS: BP 129/77
[2021-11-26] MEDS: hydrOXYzine 10 MG TABLET PO PRN (23:47)
[2021-11-27] VITALS (7 sets, daily range): BP systolic 110–160; BP diastolic 69–100
[2021-11-27 01:10] LABS: HEMOGLOBIN A1C 7.1 % (4.8-5.6)
[2021-11-27] MEDS: PANTOPRAZOLE IV PUSH 40 MG VIAL. IVP SCH (05:46)
[2021-11-27] MEDS: METOCLOPRAMIDE HCL 10 MG/2 ML VIAL. IVP SCH (05:47)
[2021-11-27] MEDS: HEPARIN for SUB-Q USE 5,000 UNIT/ML VIAL. SQ SCH ×3 (05:51→20:40)
--- NOTE | 2021-11-27 05:52 | NUR ---
HELD 0600 HEPARIN D/T PROCEDURE TODAY
[2021-11-27] MEDS ORDERED: IV RINGERS,LACTATED 1000ML 1,000 ML IV SCH (07:00)
[2021-11-27] MEDS: INSULIN LISPRO 300 UNITS/3 ML VIAL. SQ SCH ×3 (08:00→17:00)
--- NOTE | 2021-11-27 09:25 | PDOC ---
RAHEEM RADFORD MANAGER HOUSE 11/27/21 0925: CARDIO Progress Notes Date and Time Date of Service 11/27/2021 Time of Evaluation 1550 Subjective Subjective: No Chest Pain, No shortness of breath, No Palpitations, Other (feels better today) Vitals Vitals Vital Signs Date Time Temp Pulse Resp B/P (MAP) Pulse Ox O2 Delivery O2 Flow Rate FiO2 11/27/21 02:40 98.3 80 18 135/87 (103) 98 Room Air 98.3 11/26/21 21:34 2.0 Weight Weight [ ] Input and Output Intake and Output Intake and Output 11/27/21 07:00 Intake Total 290 ml Output Total 300 ml Balance -10 ml Intake Oral 290 ml Output Urine Total 300 ml Laboratory Labs Laboratory Tests Test 11/26/21 11:14 11/26/21 17:05 11/26/21 19:50 11/26/21 20:40 Glucose (Fingerstick) 152 mg/dL (70-99) 157 mg/dL (70-99) 139 mg/dL (70-99) Urine Collection Type Unknown Urine Color Maria Alejandra Urine Clarity Cloudy Urine pH 5.5 (<5.0-8.0) Urine Specific [place] 1.020 (1.000-1.030) Urine Protein Negative mg/dL (NEG-TRACE) Urine Glucose (UA) Negative mg/dL (NEG) Urine Ketones (Stick) Negative mg/dL (NEG) Urine Blood Negative (NEG) Urine Nitrite Negative (NEG) Urine Bilirubin Small (NEG) Urine Urobilinogen Dipstick 0.2 mg/dL (0.2 mg/dL) Urine Leukocyte Esterase Negative (NEG) Urine RBC 0 /HPF (0-2) Urine WBC Occ /HPF (0-4) Urine Bacteria Many /HPF (0-FEW) Urine Hyaline Casts Few /HPF Urine Mucus Mod /LPF Urine Opiates Screen Pos (NEG) Urine Methadone Screen Neg (NEG) Urine Barbiturates Neg (NEG) Urine Phencyclidine Screen Neg (NEG) Urine Amphetamine/Methamphetamine Neg (NEG) Urine Benzodiazepines Screen Neg (NEG) Urine Cocaine Screen Neg (NEG) Urine Cannabinoids Screen Neg (NEG) Urine Ethyl Alcohol Neg (NEG) Physical Exam HEENT: Neck Supple W Full Motion Chest: Symmetric LUNGS: Clear to Auscultation Heart: S1S2, RRR (SR) Abdomen: Soft N/T Extremities: No Calf Tenderness Neurology: alert, oriented, follow commands Assessment Assessment 1. Atypical chest pain: suspect GI related. EGD noted with reflux esophagitis 2. Mild colitis per CT 3. Recent hx of esophageal dilatation 4. DM2: insulin dependent 5. Vomiting with associated Electrolyte imbalance: improved. gastroparesis? 6. Dehydration 7. PUI: PCR negative 8. Prolonged QTc with underlying lyte deficiencies: better at 489 after lyte c orrection Recommendations 1. GI w/u ongoing 2. lyte replacement done 3. No further cardiac workup at this time. 4. Consider endocrinology referral, she will benefit on CGM utilization Justicifation of Admission Dx: Justifications for Admission: Justification of Admission Dx: Yes HALEY ANDRES MD 11/28/21 0935: CARDIO Progress Notes Plan Plan Late entry for 11/27/21 The patient was seen and interviewed as well as examined at the bedside. The chart was reviewed. The case was discussed. Agree with the plan of care. RAHEEM RADFORD APRN Nov 27, 2021 09:25 HALEY ANDRES MD Nov 28, 2021 09:35
[2021-11-27] MEDS ORDERED: PROPOFOL 10 MG/ML (20ML) VIAL. IV ONE ×2 (09:41→10:03)
--- NOTE | 2021-11-27 10:01 | PDOC4 ---
PROCEDURE Procedure EGD/esophageal dilation Indication: N, V, dysphagia Meds: per anesthesia Findings: E--Reflux esophagitis at 39cm. Baseline grade unclear as on chronic PPI, but don't supect erosive. No stricture, resistance to 'scope passage. G--Normal D--Normal to second portion. --Dilated with 52F Iyer w/o resistance. Jj. well. IMP: GERD Motility issue? REC: continue PPI. GES Consider barium swallow. OK to feed. JESSICA STREET MD Nov 27, 2021 10:01
[2021-11-27] MEDS ORDERED: LIDOCAINE 2% PF 5 ML VIAL. ONE (10:03)
--- NOTE | 2021-11-27 12:13 | PDOC ---
[employer] PROGRESS NOTE Date of Service DOS: DATE: 11/27/21 TIME: 12:12 Chief Complaint Chief Complaint Assessment/Plan A/P: Intractable nausea and vomiting - likely diabetic gastroparesis. Pending EGD today. Chest pain - Likely epigastric pain, will trend troponins, maintain telemetry, consult cardiology Hypokalemia - Likely GI losses, will replace, trend Hypomagnesemia - likely GI losses, replace, trend Muscular weakness - will check phos, TSH DM2 - Sliding scale, check A1c HTN - Will place FEN -n.p.o. for now PPX - heparin CODE - FULL Dispo - Inpatient CVC History of Present Illness History of Present Illness 46 yo female w/ PMHx DM2 who comes to the ED 11/25/21 c/o sharp 8 out of 10 left-sided chest pain and right flank pain. She and her , bedside, note her chest pain began today and she has associated weakness. She also notes nausea and vomiting. She has had intermittent colicky abdominal pain that is epigastric and left upper quadrant and right flank pain she refers to as "kidney pain". She notes this has been going on since 10/04/2021. She has been admitted to [facility] twice in the past 2 months for nausea and vomiting with hypokalemia. She notes in September she thinks she had an EGD and had dilatation and felt relief until 3 weeks ago her vomiting began again and she was readmitted to the hospital. Zofran helps with nausea, IV morphine relieves her pain. She is a non-smoker nondrinker. Notes she does not use any illicit drugs. Has had diabetes for 6 years and was initially on Metformin but has since been transitioned to glargine and aspart insulin throughout the day. She has not been checking her blood sugar for the last week she thinks it has not been high because she is not eating. WBC 10.8, Hb 13.7, platelets 291, NA 134, K2.3, BUN 17, CR 1.3, glucose 269, magnesium 1.5, calcium 9.1, bilirubin 0.6, AST 5, ALT 12, alkaline phosphatase 61, high-sensitivity troponin XVI, NT proBNP is 235, albumin 3.5. Chest radiograph with no acute abnormality. CT abdomen pelvis with sigmoid colon thickening and splenomegaly 12.5 cm no hydronephrosis or nephrolithiasis normal-appearing appendix. Admitted for further care. 11/26/2021 No acute events overnight. Patient seen examined bedside. No more nausea. No more vomiting. Improvement with symptoms and no more chest pain. Pending EGD today with GI. Patient's chart, labs, images were reviewed and discussed with RN 11/27/2021 No acute events overnight. Patient seen and examined bedside. EGD completed today showing only esophagitis without any ulcers. Pending gastric emptying study today. AF and VSS. Pain is moderately well controlled. Patient's chart, labs, images were reviewed and discussed with RN Vitals/I&O Vitals/I&O: Vital Signs Date Time Temp Pulse Resp B/P (MAP) Pulse Ox O2 Delivery O2 Flow Rate FiO2 11/27/21 11:49 85 20 160/100 (120) 99 Room Air 11/27/21 10:22 98.3 98.3 11/27/21 09:58 2.0 I & O 11/26/21 11/26/21 11/27/21 15:00 23:00 07:00 Intake Total 0 ml 240 ml 50 ml Output Total 300 ml Balance 0 ml -60 ml 50 ml Physical Exam General: Alert, Oriented X3, Cooperative, No acute distress Heart: Regular rate (SR), Normal S1, Normal S2, No murmurs Abdomen: Soft, No tenderness Extremities: No cyanosis, No edema Skin: No breakdown, No significant lesion Labs Labs: Laboratory Tests Test 11/26/21 17:05 11/26/21 19:50 11/26/21 20:40 Glucose (Fingerstick) 157 mg/dL (70-99) 139 mg/dL (70-99) Urine Collection Type Unknown Urine Color Maria Alejandra Urine Clarity Cloudy Urine pH 5.5 (<5.0-8.0) Urine Specific [place] 1.020 (1.000-1.030) Urine Protein Negative mg/dL (NEG-TRACE) Urine Glucose (UA) Negative mg/dL (NEG) Urine Ketones (Stick) Negative mg/dL (NEG) Urine Blood Negative (NEG) Urine Nitrite Negative (NEG) Urine Bilirubin Small (NEG) Urine Urobilinogen Dipstick 0.2 mg/dL (0.2 mg/dL) Urine Leukocyte Esterase Negative (NEG) Urine RBC 0 /HPF (0-2) Urine WBC Occ /HPF (0-4) Urine Bacteria Many /HPF (0-FEW) Urine Hyaline Casts Few /HPF Urine Mucus Mod /LPF Urine Opiates Screen Pos (NEG) Urine Methadone Screen Neg (NEG) Urine Barbiturates Neg (NEG) Urine Phencyclidine Screen Neg (NEG) Urine Amphetamine/Methamphetamine Neg (NEG) Urine Benzodiazepines Screen Neg (NEG) Urine Cocaine Screen Neg (NEG) Urine Cannabinoids Screen Neg (NEG) Urine Ethyl Alcohol Neg (NEG) Assessment and Plan Assessmemt and Plan Problems Medical Problems: (1) Chest pain Status: Acute (2) Hyperglycemia Status: Acute (3) Hypokalemia Status: Acute (4) Hypomagnesemia Status: Acute (5) Nausea and vomiting Status: Acute Comment Review of Relevant I have reviewed the following items pablo (where applicable) has been applied. Medications: Current Medications Medications (Trade) Dose Ordered Sig/Chelsea Route PRN Reason Start Time Stop Time Status Last Admin Dose Admin Ringer's Solution 1,000 ml @ 50 mls/hr Q20H IV 11/27/21 07:00 11/27/21 18:59 11/27/21 09:24 Morphine Sulfate (Morphine Sulfate) 2 mg PRN Q2HR PRN IV SEVERE PAIN 7-10 11/26/21 21:30 11/26/21 21:34 Hydroxyzine HCl (Atarax) 10 mg PRN Q8HRS PRN PO ITCHING 11/26/21 23:30 11/26/21 23:47 Justifications for Admission Other Justification JOI RUSSELL MD Nov 27, 2021 12:12
[2021-11-27] MEDS: ONDANSETRON PF 4 MG/2 ML VIAL. IVP PRN ×2 (12:55→19:20)
--- NOTE | 2021-11-27 13:02 | NUR ---
SS following up with discharge planning. SS reviewed pt chart and discussed with pt RN. Pt is currently on room air. COVID19 negative. Cardiology and GI following. EGD today. Gastric Emptying Study scheduled for tomorrow. SS will continue to follow for discharge planning.
[2021-11-27] MEDS ORDERED: NEOMY/BACITR/POLYMYXIN OINT PACKET. TP PRN (14:30)
[2021-11-27] MEDS: MORPHINE SULFATE 2 MG/ML INJ. IV PRN ×2 (14:38→19:20)
[2021-11-27] MEDS: hydrOXYzine 10 MG TABLET PO PRN (14:49)
[2021-11-27] MEDS: INSULIN GLARGINE SYRINGE. SQ SCH (20:41)
[2021-11-27] MEDS: traZODone 100 MG TABLET. PO PRN (22:37)
[2021-11-28 02:32] VITALS: BP 143/76
[2021-11-28] MEDS: HEPARIN for SUB-Q USE 5,000 UNIT/ML VIAL. SQ SCH ×3 (06:01→21:05)
[2021-11-28 07:00] VITALS: BP 153/99
[2021-11-28] MEDS: MORPHINE SULFATE 2 MG/ML INJ. IV PRN ×3 (07:07→21:33)
[2021-11-28] MEDS: ONDANSETRON PF 4 MG/2 ML VIAL. IVP PRN ×3 (07:12→20:44)
[2021-11-28] MEDS: PANTOPRAZOLE 40 MG TABLET.DR. PO SCH (07:30)
[2021-11-28] MEDS: INSULIN LISPRO 300 UNITS/3 ML VIAL. SQ SCH ×3 (08:00→17:00)
[2021-11-28] MEDS ORDERED: PROCHLORPERAZINE 10 MG/2 ML VIAL. IV PRN (08:45)
--- NOTE | 2021-11-28 10:31 | NUR ---
SS following up with discharge planning. SS reviewed pt chart and discussed with pt RN. Pt is currently on room air. COVID19 negative. GI and Cardiology following. Pt scheduled for gastric emptying study today. Per RN, pt is profusely vomiting bloody vomit. SS will continue to follow for discharge planning.
[2021-11-28 10:44] VITALS: BP 187/91
[2021-11-28] MEDS: hydrOXYzine 10 MG TABLET PO PRN (11:36)
[2021-11-28 11:49] LABS: CALCIUM 8.4 mg/dL (8.5-10.1); CREATININE 1.2 mg/dL (0.6-1.0); GFR 48.8; MAGNESIUM 1.9 mg/dL (1.8-2.4); PHOSPHORUS 2.5 mg/dL (2.6-4.7); POTASSIUM 3.3 mmol/L (3.5-5.1)
[2021-11-28 11:57] LABS: BASO % 1 % (0-3); EOS # 0.1 x10^3/uL (0.0-0.7); EOS % 1 % (0-3); HEMATOCRIT 34.8 % (36.0-47.0); HEMOGLOBIN 11.7 g/dL (12.0-15.5); LYMPH # 0.9 x10^3/uL (1.0-4.8); LYMPH % 15 % (24-48); MEAN CORPUSCULAR HEMOGLOBIN 28 pg (25-35); MEAN CORPUSCULAR HGB CONC 34 g/dL (31-37); MEAN CORPUSCULAR VOLUME 83 fL (79-100); MONO # 0.3 x10^3/uL (0.0-1.1); MONO % 5 % (0-9); NEUT # 4.7 x10^3/uL (1.8-7.7); NEUT % 79 % (31-73); PLATELET COUNT 166 x10^3/uL (140-400); RED BLOOD COUNT 4.19 x10^6/uL (3.50-5.40); RED CELL DISTRIBUTION WIDTH 14.8 % (11.5-14.5)
--- NOTE | 2021-11-28 13:03 | PDOC ---
[employer] PROGRESS NOTE Date of Service DOS: DATE: 11/28/21 TIME: 13:02 Chief Complaint Chief Complaint Assessment/Plan A/P: Intractable nausea and vomiting - likely diabetic gastroparesis. Pending EGD today. Chest pain - Likely epigastric pain, will trend troponins, maintain telemetry, consult cardiology Hypokalemia - Likely GI losses, will replace, trend Hypomagnesemia - likely GI losses, replace, trend Muscular weakness - will check phos, TSH DM2 - Sliding scale, check A1c HTN - Will place FEN -n.p.o. for now PPX - heparin CODE - FULL Dispo - Inpatient CVC History of Present Illness History of Present Illness 46 yo female w/ PMHx DM2 who comes to the ED 11/25/21 c/o sharp 8 out of 10 left-sided chest pain and right flank pain. She and her , bedside, note her chest pain began today and she has associated weakness. She also notes nausea and vomiting. She has had intermittent colicky abdominal pain that is epigastric and left upper quadrant and right flank pain she refers to as "kidney pain". She notes this has been going on since 10/04/2021. She has been admitted to [facility] twice in the past 2 months for nausea and vomiting with hypokalemia. She notes in September she thinks she had an EGD and had dilatation and felt relief until 3 weeks ago her vomiting began again and she was readmitted to the hospital. Zofran helps with nausea, IV morphine relieves her pain. She is a non-smoker nondrinker. Notes she does not use any illicit drugs. Has had diabetes for 6 years and was initially on Metformin but has since been transitioned to glargine and aspart insulin throughout the day. She has not been checking her blood sugar for the last week she thinks it has not been high because she is not eating. WBC 10.8, Hb 13.7, platelets 291, NA 134, K2.3, BUN 17, CR 1.3, glucose 269, magnesium 1.5, calcium 9.1, bilirubin 0.6, AST 5, ALT 12, alkaline phosphatase 61, high-sensitivity troponin XVI, NT proBNP is 235, albumin 3.5. Chest radiograph with no acute abnormality. CT abdomen pelvis with sigmoid colon thickening and splenomegaly 12.5 cm no hydronephrosis or nephrolithiasis normal-appearing appendix. Admitted for further care. 11/26/2021 No acute events overnight. Patient seen examined bedside. No more nausea. No more vomiting. Improvement with symptoms and no more chest pain. Pending EGD today with GI. Patient's chart, labs, images were reviewed and discussed with RN 11/27/2021 No acute events overnight. Patient seen and examined bedside. EGD completed today showing only esophagitis without any ulcers. Pending gastric emptying study today. AF and VSS. Pain is moderately well controlled. Patient's chart, labs, images were reviewed and discussed with RN 11/28/2021 No acute events overnight. Patient seen examined bedside. Patient was lying on her face because she is in so much pain. Requiring multiple doses of IV morphine. Having nausea and vomiting. Unable to do gastric emptying study today. [facility] [place] which may have contributed to her current presentation.. Patient's chart, labs, images were reviewed and discussed with RN Vitals/I&O Vitals/I&O: Vital Signs Date Time Temp Pulse Resp B/P (MAP) Pulse Ox O2 Delivery O2 Flow Rate FiO2 11/28/21 11:32 16 Room Air 11/28/21 10:44 99.8 67 187/91 (123) 100 99.8 11/28/21 08:38 2.0 I & O 11/27/21 11/27/21 11/28/21 15:00 23:00 07:00 Intake Total 1300 ml 700 ml 222 ml Balance 1300 ml 700 ml 222 ml Physical Exam General: Alert, Oriented X3, Cooperative, No acute distress Heart: Regular rate (SR), Normal S1, Normal S2, No murmurs Abdomen: Soft, No tenderness Extremities: No cyanosis, No edema Skin: No breakdown, No significant lesion Labs Labs: Laboratory Tests Test 11/27/21 20:53 11/28/21 07:36 11/28/21 10:41 11/28/21 11:05 Glucose (Fingerstick) 208 mg/dL (70-99) 183 mg/dL (70-99) 209 mg/dL (70-99) White Blood Count 6.0 x10^3/uL (4.0-11.0) Red Blood Count 4.19 x10^6/uL (3.50-5.40) Hemoglobin 11.7 g/dL (12.0-15.5) Hematocrit 34.8 % (36.0-47.0) Mean Corpuscular Volume 83 fL (79-100) Mean Corpuscular Hemoglobin 28 pg (25-35) Mean Corpuscular Hemoglobin Concent 34 g/dL (31-37) Red Cell Distribution Width 14.8 % (11.5-14.5) Platelet Count 166 x10^3/uL (140-400) Neutrophils (%) (Auto) 79 % (31-73) Lymphocytes (%) (Auto) 15 % (24-48) Monocytes (%) (Auto) 5 % (0-9) Eosinophils (%) (Auto) 1 % (0-3) Basophils (%) (Auto) 1 % (0-3) Neutrophils # (Auto) 4.7 x10^3/uL (1.8-7.7) Lymphocytes # (Auto) 0.9 x10^3/uL (1.0-4.8) Monocytes # (Auto) 0.3 x10^3/uL (0.0-1.1) Eosinophils # (Auto) 0.1 x10^3/uL (0.0-0.7) Basophils # (Auto) 0.0 x10^3/uL (0.0-0.2) Sodium Level 142 mmol/L (136-145) Potassium Level 3.3 mmol/L (3.5-5.1) Chloride Level 103 mmol/L (98-107) Carbon Dioxide Level 28 mmol/L (21-32) Anion Gap 11 (6-14) Blood Urea Nitrogen 14 mg/dL (7-20) Creatinine 1.2 mg/dL (0.6-1.0) Estimated GFR (Cockcroft-Gault) 48.8 Glucose Level 230 mg/dL (70-99) Calcium Level 8.4 mg/dL (8.5-10.1) Phosphorus Level 2.5 mg/dL (2.6-4.7) Magnesium Level 1.9 mg/dL (1.8-2.4) Assessment and Plan Assessmemt and Plan Problems Medical Problems: (1) Chest pain Status: Acute (2) Hyperglycemia Status: Acute (3) Hypokalemia Status: Acute (4) Hypomagnesemia Status: Acute (5) Nausea and vomiting Status: Acute Comment Review of Relevant I have reviewed the following items pablo (where applicable) has been applied. Medications: Current Medications Medications (Trade) Dose Ordered Sig/Chelsea Route PRN Reason Start Time Stop Time Status Last Admin Dose Admin Neomycin/ Polymyxin/ Bacitracin (Triple Antibiotic Ointment) 1 pkt PRN TID PRN TP CUTS 11/27/21 14:30 11/27/21 14:37 Trazodone HCl (Desyrel) 200 mg PRN QHS PRN PO INSOMNIA 11/27/21 22:15 11/27/21 22:37 Prochlorperazine Edisylate (Compazine) 10 mg PRN Q6HRS PRN IV NAUSEA/VOMITING 11/28/21 08:45 11/28/21 08:59 Justifications for Admission Other Justification JOI RUSSELL MD Nov 28, 2021 13:03
[2021-11-28 14:32] VITALS: BP 176/103
[2021-11-28] MEDS: AMPICILLIN/SULBACTAM 1.5 GM in IV NORMAL SALINE 50ML 50 ML IV SCH ×2 (15:00→23:48)
[2021-11-28 19:25] VITALS: BP 149/97
[2021-11-28] MEDS: INSULIN GLARGINE SYRINGE. SQ SCH (20:44)
[2021-11-28] MEDS: traZODone 100 MG TABLET. PO PRN (20:44)
[2021-11-28 22:35] VITALS: BP 183/93
[2021-11-29] MEDS: ONDANSETRON PF 4 MG/2 ML VIAL. IVP PRN (02:18)
[2021-11-29 02:19] VITALS: BP 179/82
[2021-11-29] MEDS: AMPICILLIN/SULBACTAM 1.5 GM in IV NORMAL SALINE 50ML 50 ML IV SCH ×2 (05:59→12:00)
[2021-11-29] MEDS: HEPARIN for SUB-Q USE 5,000 UNIT/ML VIAL. SQ SCH ×2 (06:00→14:00)
[2021-11-29] MEDS: PANTOPRAZOLE 40 MG TABLET.DR. PO SCH (06:00)
[2021-11-29 07:00] VITALS: BP 157/103
[2021-11-29] MEDS: INSULIN LISPRO 300 UNITS/3 ML VIAL. SQ SCH ×2 (08:00→12:00)
[2021-11-29 10:10] VITALS: BP 149/81
[2021-11-29 10:23] LABS: CALCIUM 7.7 mg/dL (8.5-10.1); CREATININE 0.9 mg/dL (0.6-1.0); MAGNESIUM 1.4 mg/dL (1.8-2.4); POTASSIUM 3.5 mmol/L (3.5-5.1)
--- NOTE | 2021-11-29 10:55 | PDOC ---
Date of Service: DATE: 11/29/21 TIME: 10:50 Subjective: Subjective: Tolerated regular food on Thu, vomited Th morning. Says she does better with regular food, worse w/ liquids - that way at home too. After eating has "burning like acid" abdominal pain below belly button. Objective: Objective: D/w nurse - GES cancelled per nuc med yesterday, not reordered for today, apparently unable to add to their schedule today. Pt says she will do GES now or not at all. 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 Vomiting yesterday - better throughout the day and was asking to eat. Vital Signs: Vital Signs Date Time Temp Pulse Resp B/P (MAP) Pulse Ox O2 Delivery O2 Flow Rate FiO2 11/29/21 10:10 99.2 90 18 149/81 (103) 99 Room Air 99.2 11/28/21 22:03 2.0 Labs: Laboratory Tests Test 11/28/21 11:05 11/28/21 17:02 11/28/21 20:40 11/29/21 08:02 White Blood Count 6.0 x10^3/uL Red Blood Count 4.19 x10^6/uL Hemoglobin 11.7 g/dL Hematocrit 34.8 % Mean Corpuscular Volume 83 fL Mean Corpuscular Hemoglobin 28 pg Mean Corpuscular Hemoglobin Concent 34 g/dL Red Cell Distribution Width 14.8 % Platelet Count 166 x10^3/uL Neutrophils (%) (Auto) 79 % Lymphocytes (%) (Auto) 15 % Monocytes (%) (Auto) 5 % Eosinophils (%) (Auto) 1 % Basophils (%) (Auto) 1 % Neutrophils # (Auto) 4.7 x10^3/uL Lymphocytes # (Auto) 0.9 x10^3/uL Monocytes # (Auto) 0.3 x10^3/uL Eosinophils # (Auto) 0.1 x10^3/uL Basophils # (Auto) 0.0 x10^3/uL Sodium Level 142 mmol/L Potassium Level 3.3 mmol/L Chloride Level 103 mmol/L Carbon Dioxide Level 28 mmol/L Anion Gap 11 Blood Urea Nitrogen 14 mg/dL Creatinine 1.2 mg/dL Estimated GFR (Cockcroft-Gault) 48.8 Glucose Level 230 mg/dL Calcium Level 8.4 mg/dL Phosphorus Level 2.5 mg/dL Magnesium Level 1.9 mg/dL Glucose (Fingerstick) 170 mg/dL 161 mg/dL 156 mg/dL Test 11/29/21 09:42 Sodium Level 140 mmol/L Potassium Level 3.5 mmol/L Chloride Level 103 mmol/L Carbon Dioxide Level 26 mmol/L Anion Gap 11 Blood Urea Nitrogen 6 mg/dL Creatinine 0.9 mg/dL Estimated GFR (Cockcroft-Gault) 68.0 Glucose Level 139 mg/dL Calcium Level 7.7 mg/dL Magnesium Level 1.4 mg/dL Imaging: EGD 11/27/21 E--Reflux esophagitis at 39cm. Baseline grade unclear as on chronic PPI, but don't supect erosive. No stricture, resistance to 'scope passage. G--Normal D--Normal to second portion. --Dilated with 52F Iyer w/o resistance. Jj. well. IMP: GERD Motility issue? REC: continue PPI. GES Consider barium swallow. OK to feed. PE: GEN: NAD LUNGS: CTAB HEART: RRR ABD: NABS, S/ND/NT NEURO/PSYCH: A & O 3 A/P: Chronic n/v, dysphagia - EGD results and GES situation as above Lower abd pain Mild normocytic anemia, h/o JENNIFER per [facility] records UTI GERD - on PPI CRC screen - reports normal colonoscopy in 2019 S/p cholecystectomy DM COVID negative -- Explained GES situation - she was understanding but disappointed. Retry diet - if tolerates, ?DC soon and continue workup (GES, esophagram) as outpt - unlikely to get GES over the weekend. Will return this afternoon w/ Dr. Stern. Continue PPI - change to IV if indicated. ?stooling - monitor Justicifation of Admission Dx: Justifications for Admission: Justification of Admission Dx: Yes HEAVENLY LANGLEY Nov 29, 2021 10:55
[2021-11-29] MEDS ORDERED: POLYETHYLENE GLYCOL 3350 17 GM PACKET. PO PRN (11:45)
--- NOTE | 2021-11-29 13:05 | NUR ---
SS following up with discharge planning. SS reviewed pt chart and discussed with pt RN. Pt is currently on room air. COVID19 negative. Pt on IV Ampicillin. GI following. Gastric Emptying Study to be done as outpatient. Discharge plan is currently to home when medically ready for discharge. SS will continue to follow for discharge planning.
[2021-11-29] MEDS ORDERED: METO5TAB55 PO (13:25)
[2021-11-29] MEDS ORDERED: ONDA8TAB15 PO (13:25)
[2021-11-29] MEDS ORDERED: NITR100C62 PO (13:25)
--- NOTE | 2021-11-29 13:30 | DISCH ---
DISCHARGE INSTRUCTIONS Condition on Discharge Condition on Discharge: Stable Activity After Discharge Activity Instructions for Disc: Resume previous activity Exercise Instruction after Dis: Walk 30 min, 5 x per week Driving Instructions after Dis: Do not drive today Weight Bearing Status after Di: As tolerated Diet after Discharge Diet after Discharge: Cardiac, Diabetic No Calorie Level Follow-Up Follow up with: PCP within 2 weeks of discharge Follow Up With: Gastroenterology [facility] for gastric emptying study JOI RUSSELL MD Nov 29, 2021 13:30
== END 2021-11-29 14:50 | disposition home or self-care (01) | DRG 392 ==
LOC: ER 17:46 → 6 SOUTH 20:12
PROVIDERS: ADMIT Internal Medicine; ATTEND Internal Medicine
PROC: 0D758ZZ Dilation of Esophagus, Via Natural or Artificial Opening Endoscopic (ICD-10-PCS; principal; 2021-11-27 10:00)
DX: K21.00 Gastro-esophageal reflux disease with esophagitis, without bleeding (principal); N39.0 Urinary tract infection, site not specified; E87.6 Hypokalemia; D64.9 Anemia, unspecified; E11.65 Type 2 diabetes mellitus with hyperglycemia; E83.42 Hypomagnesemia; E86.0 Dehydration; I10 Essential (primary) hypertension; K22.2 Esophageal obstruction; K52.9 Noninfective gastroenteritis and colitis, unspecified; K57.30 Diverticulosis of large intestine without perforation or abscess without bleeding; M51.37 Other intervertebral disc degeneration, lumbosacral region; K31.7 Polyp of stomach and duodenum; Z20.822 Contact with and (suspected) exposure to COVID-19; Z79.4 Long term (current) use of insulin; Z82.49 Family history of ischemic heart disease and other diseases of the circulatory system; Z83.3 Family history of diabetes mellitus; Z90.49 Acquired absence of other specified parts of digestive tract; Z88.2 Allergy status to sulfonamides; Z88.8 Allergy status to other drugs, medicaments and biological substances
CPT/HCPCS: 36415; 43450; 71045; 74176; 80048; 80053; 80307; 81001; 82607; 82962; 83036; 83605; 83690; 83735; 83880; 84100; 84439; 84443; 84484; 85025; 85379; 87077; 87086; 87186; 87426; 93005; 96365; 96366; 96375; C9113; J0295; J0780; J1644; J1815; J2270; J2405; J2704; J2765; J3475; J3480; J7030; J7050; J7120; U0003; 99285-25; G0378